=== PATIENT | male | born 1975 | race Caucasian/White ===

== ENCOUNTER 2023-12-12 11:19 | Outpatient (OUT) | payer OTHER, SELFPAY ==
--- NOTE | 2023-12-12 | XR_ITS ---
The [address] [address] Patient Name: RAGHAVENDRA TOTH MRN: [id number] date: 1975 Sex: M Assigned Patient Location: Current Patient Location: Accession/Order Number: [id number] Exam Date: 12/12/2023 12:25 Report Date: 12/22/2023 07:56 At the request of: MOUNA WINN Procedure: XR cervical spine w flex/ext EXAMINATION: XR cervical spine w flex/ext HISTORY: CERVICAL SPINE PAIN COMPARISON: No relevant comparison available. FINDINGS: BONES: Straightening of normal cervical lordosis. No acute fracture or spondylolisthesis. Mild spondylosis and facet osteoarthropathy DISC SPACES: Normal. No significant disc height narrowing, subluxation, or endplate abnormality. PARASPINOUS: Negative. No paraspinous abnormality is seen. OTHER: No transient spondylolisthesis with flexion or extension XR/XR cervical spine w flex/ext IMPRESSION: Mild degenerative changes with no dynamic instability Electronically authenticated by: ADAMS HALL Date: 12/22/2023 07:56
== END 2023-12-12 11:20 | disposition home or self-care (01) ==
LOC: EC 11:19
PROVIDERS: Visit Provider Orthopaedic Surgery Orthopaedic Surgery of the Spine
DX: M54.2 Cervicalgia (principal)
CPT/HCPCS: 72052

== ENCOUNTER 2023-12-30 15:20 | Outpatient (OUT) | payer OTHER, SELFPAY ==
--- NOTE | 2023-12-30 15:28 | XR_ITS ---
The [address] [address] Patient Name: RAGHAVENDRA TOTH MRN: [id number] date: 1975 Sex: M Assigned Patient Location: RAD Current Patient Location: RAD Accession/Order Number: [id number] Exam Date: 12/30/2023 15:30 Report Date: 12/30/2023 15:41 At the request of: MOUNA WINN Procedure: XR foreign body eye BALA EXAMINATION: XR foreign body eye BALA HISTORY: Foreign Body Eye COMPARISON: No relevant comparison available. FINDINGS: ORBITS: Negative for a metallic foreign body. OTHER: Dense oval 1.1 cm structure projecting over left frontal sinus. XR/XR foreign body eye BALA IMPRESSION: 1 no metallic foreign body within the orbits. 2. Calcification versus dense inspissated secretions within left frontal sinus. Suspect chronic sinusitis of the maxillary sinuses as well. Electronically authenticated by: RAI MOURA Date: 12/30/2023 15:41
--- NOTE | 2023-12-30 15:29 | MR_ITS ---
[address] [address] Patient Name: RAGHAVENDRA TOTH MRN: [id number] date: 1975 Sex: M Assigned Patient Location: [facility] Current Patient Location: [facility] Accession/Order Number: [id number] Exam Date: 12/30/2023 15:46 Report Date: 01/01/2024 17:47 At the request of: MOUNA WINN Procedure: MR cervical spine wo con EXAMINATION: MR cervical spine wo con HISTORY: Cervical spine stenosis. Pain and pinched nerve in the neck from weight lifting. COMPARISON: Cervical radiograph 12/12/2023. TECHNIQUE: Multiplanar, multisequence MR images of the cervical spine without intravenous contrast. FINDINGS: The cervical spine is straightened. There is no subluxation. Moderate disc space narrowing C6-C7. Mild disc space narrowing in the remaining cervical spine. Minimal Modic type I changes at C4-C5 through C6-C7. Diffuse narrowing of the spinal canal from short pedicles. C2-C3: Moderate right facet arthropathy. No significant central spinal canal stenosis. No foraminal stenosis. C3-C4: Moderate bilateral facet arthropathy and bilateral uncovertebral osteophytes. No spinal canal stenosis. Severe bilateral foraminal stenosis. C4-C5: Broad-based disc-osteophyte complex, mild to moderate facet arthropathy and bilateral uncovertebral osteophyte. There is moderate central spinal canal and moderate to severe bilateral foraminal stenosis. C5-C6: Disc bulge and moderate facet arthropathy. Mild spinal canal stenosis. Moderate left foraminal stenosis. C6-C7: Broad-based disc protrusion, moderate facet arthropathy and bilateral uncovertebral osteophytes. There is severe spinal canal stenosis and severe bilateral foraminal stenosis. C7-T1: Mild facet arthropathy without spinal canal or foraminal stenosis. MR/MR cervical spine wo con IMPRESSION: 1. Mild multilevel degenerative disc disease and moderate multilevel degenerative facet arthropathy in the cervical spine. 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 2. At C6-C7, there is a broad-based disc protrusion which results in severe central spinal canal stenosis. Severe bilateral foraminal stenosis. 3. Additional multiple levels of significant central spinal canal and foraminal stenosis as described. Electronically authenticated by: LARISA LINDO Date: 01/01/2024 17:47
--- OUTSIDE RECORDS SUMMARY | 2023-12-30 15:30 | XMS_ITS | CCD ---
Author Organization [facility] Care Team Providers Care 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 Name Role Phone BEE GARCIA Admitting Unavailable BEE GARCIA Attending Unavailable REQUEST, NONE LISTED Primary Care Unavailable RICARDO GIRARD Consulting Unavailable BEE GARCIA Consulting Unavailable No Pcp, No Pcp Primary Care Provider UnavailKatlyn Figueroa Primary Care [facility] KATLYN BENDER Attending Unavailable KATLYN BENDER Primary Care Unavailable KATLYN BENDER Referring Unavailable KATLYN BENDER Primary Care Unavailable Medications Current Medications Medication Drug Class(es) Dates Sig (Normalized) Sig (Original) methylPREDNISolone (2 sources) Corticosteroid Start: 4 methylPREDNISolone (MEDROL, MARCELINA,) 4 mg tablet TAKE 6 TABLETS ON DAY 1 DIRECTED ON PACKAGE AND DECREASE BY 1 TAB EACH DAY FOR A TOTAL OF 6 DAYS 12/12/2023 Active tiZANidine 4 mg oral tablet (2 sources) Central alpha-2 Adrenergic Agonist Start: 4 take 1 tablet by mouth every six hours as needed for muscle spasms tiZANidine (ZANAFLEX) 4 mg tablet Indications: Neck muscle spasm Take 1 tablet (4 mg total) by mouth every 6 (six) hours as needed for muscle spasms. 20 tablet 12/16/2023 Active Problems Active Problems Problem Classification Problem Date Documented Da te Episodic/Chronic Immunizations and screening for infectious disease (2 sources) Needs influenza immunization; Translations: [Encounter for immunization] Onset: 12-16-2023 12-16-2023 Episodic Other connective tissue disease (1 source) Muscle spasm of cervical muscle of neck; Translations: [Other muscle spasm] 12-16-2023 Episodic Other connective tissue disease (1 source) Other muscle spasm; Translations: [Other muscle spasm] Onset: 12-16-2023 Episodic Other eye disorders (4 sources) Ocular pain, right eye; Translations: [OCULAR PAIN RIGHT EYE] Onset: 04-12-2018 Episodic Other screening for suspected conditions (not mental disorders or infectious disease) (2 sources) Patient encounter status; Translations: [Encounter for screening for malignant neoplasm of colon] Onset: 12-16-2023 12-16-2023 Episodic Superficial injury; contusion (1 source) Injury of conjunctiva and corneal abrasion without foreign body, right eye, initial encounter; Translations: [INJ CONJ AND CA W/O FB RT EYE INITIAL] Onset: 04-14-2018 Episodic Unclassified (1 source) new patient Onset: 12-16-2023 Past or Other Problems Problem Classification Problem Date Documented Da te Episodic/Chronic Mood disorders (3 sources) Mood disorders Onset: 10-06-2019 10-06-2019 Other ear and sense organ disorders (3 sources) Impacted cerumen in left ear; Translations: [Impacted cerumen, left ear] Onset: 10-06-2019 10-06-2019 Episodic Unclassified (3 sources) Onset: 10-06-2019 10-06-2019 Results Test Name Value Interpretation Reference Range Facil ity CBC AND AUTO DIFFon 12-16-19 24 ABSOLUTE BASOPHIL 0.0 X10E9/L Normal 0.0-0.2 [facility] Comment on above: Performed By: #### C BCA, CMP, 48262-1, HA1C, 3016-3 #### [facility] ([id number]) [address], [address] [place] [address] ABSOLUTE NEUTROPHIL 4.8 X10E9/L Normal 1.5-6.6 [facility] Comment on above: Performed By: #### C BCA, CMP, 76869-3, HA1C, 3016-3 #### [facility] ([id number]) [address], [address] [place] [address] Basophils/100 WBC (Bld) 0.6 % Normal [facility] Comment on above: Performed By: #### C BCA, CMP, 79384-6, HA1C, 3016-3 #### [facility] ([id number]) [address] [place] [address] Eosinophils (Bld) [#/Vol] 0.1 10*3/uL Normal 0.0-0.4 [facility] Comment on above: Performed By: #### C BCA, CMP, 38323-2, HA1C, 3016-3 #### [facility] ([id number]) [address], [facility] [address] [place] [address] Eosinophils/100 WBC (Bld) 0.7 % Normal [facility] Comment on above: Performed By: #### C BCA, CMP, 83889-6, HA1C, 6-3 #### [facility] ([id number]) [address] [place] [address] Erythrocyte distribution width (RBC) [Ratio] 13.2 % Normal 11.5-15.0 [facility] Comment on above: Performed By: #### C BCA, CMP, 92465-4, HA1C, 3015- #### [facility] ([id number]) [address] [place] [address] Hematocrit (Bld) [Volume fraction] 41.5 % Normal 39-49 [facility] Comment on above: Performed By: #### C BCA, CMP, 81847-4, HA1C, 6-3 #### [facility] ([id number]) [address] [place] [address] Hemoglobin (Bld) [Mass/Vol] 14.4 g/dL Normal 13.0-17.0 [facility] Comment on above: Performed By: #### C BCA, CMP, 21012-5, HA1C, 6-3 #### [facility] ([id number]) [address] [place] [address] Lymphocytes (Bld) [#/Vol] 1.6 10*3/uL Normal 1.0-3.5 [facility] Comment on above: Performed By: #### C BCA, CMP, 64579-6, HA1C, 3015-04 #### [facility] ([id number]) [address] [place] [address] Lymphocytes/100 WBC (Bld) 22.4 % Normal [facility] Comment on above: Performed By: #### C BCA, CMP, 51642-2, HA1C, 3015- #### [facility] ([id number]) [address], [address] [place] [address] MCH (RBC) [Entitic mass] 31.2 pg Normal 27-34 [facility] Comment on above: Performed By: #### C BCA, CMP, 01350-1, HA1C, 3015- #### [facility] ([id number]) [address], [facility] [address] [place] [address] MCHC (RBC) [Mass/Vol] 34.7 g/dL Normal 32-36 [facility] Comment on above: Performed By: #### C BCA, CMP, 69056-2, HA1C, 3015- #### [facility] ([id number]) [address], [address] [place] [address] MCV (RBC) [Entitic vol] 90 fL Normal 80-100 [facility] Comment on above: Performed By: #### C BCA, CMP, 79410-2, HA1C, 3015-04 #### [facility] ([id number]) [address], [address] [place] [address] Monocytes (Bld) [#/Vol] 0.7 10*3/uL Normal 0-0.9 [facility] Comment on above: Performed By: #### C BCA, CMP, 66116-8, HA1C, 3015-3 #### [facility] ([id number]) [address], [address] [place] [address] Monocytes/100 WBC (Bld) 10.2 % Normal [facility] Comment on above: Performed By: #### C BCA, CMP, 78431-2, HA1C, 3016-3 #### [facility] ([id number]) [address], [address] [place] [address] Neutrophils/100 WBC (Bld) 66.1 % Normal [facility] Comment on above: Performed By: #### C BCA, CMP, 93977-1, HA1C, 6-3 #### [facility] ([id number]) [address], [address] [place] [address] Platelet mean volume (Bld) [Entitic vol] 9.4 fL Normal 7-12 [facility] Comment on above: Performed By: #### C BCA, CMP, 60920-8, HA1C, 6-3 #### [facility] ([id number]) [address], [address] [place] [address] Platelets (Bld) [#/Vol] 165 10*3/uL Normal 150-450 [facility] Comment on above: Performed By: #### C BCA, CMP, 23826-0, HA1C, 6-3 #### [facility] ([id number]) [address], [address] [place] [address] RBC COUNT 4.62 X10E12/L Normal 4.10-5.70 [facility] Comment on above: Performed By: #### C BCA, CMP, 05498-8, HA1C, 3015-3 #### [facility] ([id number]) [address], [address] [place] [address] WBC (Bld) [#/Vol] 7.3 10*3/uL Normal 4.0-11.0 [facility] Comment on above: Performed By: #### C BCA, CMP, 76808-2, HA1C, 6-3 #### [facility] ([id number]) [address], [address] [place] [address] CBC auto differentialon Basophils (Bld) [#/Vol] 0 10*3/uL [facility] Basophils/100 WBC (Bld) 0.6 % [facility] Eosinophils (Bld) [#/Vol] 0.1 10*3/uL [facility] Eosinophils/100 WBC (Bld) 0.7 % [facility] Erythrocyte distribution width (RBC) [Ratio] 13.2 % 11.5 - 15.0 % [facility] Hematocrit (Bld) [Volume fraction] 41.5 % 39 - 49 % [facility] Hemoglobin (Bld) [Mass/Vol] 14.4 g/dL 13.0 - 17.0 g/dL [facility] Lymphocytes (Bld) [#/Vol] 1.6 10*3/uL [facility] Lymphocytes/100 WBC (Bld) 22.4 % [facility] MCH (RBC) [Entitic mass] 31.2 pg 27 - 34 pg [facility] MCHC (RBC) [Mass/Vol] 34.7 g/dL 32 - 36 g/dL [facility] MCV (RBC) [Entitic vol] 90 fL 80 - 100 fL [facility] Monocytes (Bld) [#/Vol] 0.7 10*3/uL [facility] Monocytes/100 WBC (Bld) 10.2 % [facility] Neutrophils (Bld) [#/Vol] 4.8 10*3/uL [facility] Neutrophils/100 WBC (Bld) 66.1 % [facility] Platelet mean volume (Bld) [Entitic vol] 9.4 fL 7 - 12 fL [facility] Platelets (Bld) [#/Vol] 165 10*3/uL [facility] RBC (Bld) [#/Vol] 4.62 10*6/uL [facility] WBC corrected for nucl RBC Auto (Bld) [#/Vol] 7.3 [facility] COMPREHENSIVE METABOLIC PANE Florencio 12-16-2023 Albumin [Mass/Vol] 4.6 g/dL Normal 3.2-5.3 [facility] Comment on above: Performed By: #### C BCA, CMP, 82300-9, HA1C, 3016-3 #### [facility] ([id number]) [address], [address] [place] [address] ALP [Catalytic activity/Vol] 49 U/L Normal 39-130 [facility] Comment on above: Performed By: #### C BCA, CMP, 82717-6, HA1C, 3016-3 #### [facility] ([id number]) [address], [address] [place] [address] ALT [Catalytic activity/Vol] 25 U/L Normal 0-40 [facility] Comment on above: Performed By: #### C BCA, CMP, 83482-3, HA1C, 3016-3 #### [facility] ([id number]) [address], [address] [place] [address] Anion gap [Moles/Vol] 9 mmol/L Normal 5-15 [facility] Comment on above: Performed By: #### C BCA, CMP, 38808-1, HA1C, 3016-3 #### [facility] ([id number]) [address], [address] [place] [address] AST [Catalytic activity/Vol] 23 U/L Normal 0-41 [facility] Comment on above: Performed By: #### C BCA, CMP, 12139-3, HA1C, 6-3 #### [facility] ([id number]) [address], [address] [place] [address] Bilirubin [Mass/Vol] 0.8 mg/dL Normal 0.3-1.2 [facility] Comment on above: Performed By: #### C BCA, CMP, 18634-0, HA1C, 3016-3 #### [facility] ([id number]) [address], [address] [place] [address] Calcium [Mass/Vol] 9.7 mg/dL Normal 8.5-10.5 [facility] Comment on above: Performed By: #### C BCA, CMP, 41595-9, HA1C, 3016-3 #### [facility] ([id number]) [address], [address] [place] [address] Chloride [Moles/Vol] 102 mmol/L Normal 98-109 [facility] Comment on above: Performed By: #### C BCA, CMP, 49028-7, HA1C, 6-3 #### [facility] ([id number]) [address], [facility] [address] [place] [address] CO2 [Moles/Vol] 26 mmol/L Normal 22-32 [facility] Comment on above: Performed By: #### C BCA, CMP, 76052-1, HA1C, 6-3 #### [facility] ([id number]) [address], [address] [place] [address] Creatinine [Mass/Vol] 0.86 mg/dL Normal 0.60-1.30 [facility] Comment on above: Result Comment: METH OD TRACEABLE TO IDMS STANDARD Performed By: #### C BCA, CMP, 03151-4, HA1C, 3015-3 #### [facility] ([id number]) [address], [address] [place] [address] eGFR (CKD-EPI) NON-RACE DEPENDENT >90 Normal >59 [facility] Comment on above: Result Comment: Reported eGFR is based on the CKD-EPI 2020 equation that does not use a race coefficient. Performed By: #### C BCA, CMP, 53257-4, HA1C, 3016-3 #### [facility] ([id number]) [address], [address] [place] [address] Glucose [Mass/Vol] 88 mg/dL Normal 65-99 [facility] Comment on above: Performed By: #### C BCA, CMP, 91681-4, HA1C, 3016-3 #### [facility] ([id number]) [address], [address] [place] [address] Potassium [Moles/Vol] 3.8 mmol/L Normal 3.5-5.0 [facility] Comment on above: Performed By: #### C BCA, CMP, 66670-9, HA1C, 3016-3 #### [facility] ([id number]) [address] [place] [address] Protein [Mass/Vol] 7.7 g/dL Normal 6.0-8.0 [facility] Comment on above: Performed By: #### C BCA, CMP, 84312-8, HA1C, 3016-3 #### [facility] ([id number]) [address], [address] [place] [address] Sodium [Moles/Vol] 137 mmol/L Normal 134-146 [facility] Comment on above: Performed By: #### C BCA, CMP, 32929-9, HA1C, 3016-3 #### [facility] ([id number]) [address], [address] [place] [address] Urea nitrogen [Mass/Vol] 22 mg/dL Normal 5-23 [facility] Comment on above: Performed By: #### C BCA, CMP, 34156-1, HA1C, 3016-3 #### [facility] ([id number]) [address] [place] [address] Comprehensive metabolic pane florencio 12-16-2023 Albumin [Mass/Vol] 4.6 g/dL 3.2 - 5.3 g/dL [facility] ALP [Catalytic activity/Vol] 49 U/L 39 - 130 U/L [facility] ALT No additional P-5'-P [Catalytic activity/Vol] 25 U/L 0 - 40 U/L [facility] Anion gap [Moles/Vol] 9 mmol/L 5 - 15 mmol/L [facility] AST [Catalytic activity/Vol] 23 U/L 0 - 41 U/L [facility] Bilirubin [Mass/Vol] 0.8 mg/dL 0.3 - 1.2 mg/dL [facility] Calcium [Mass/Vol] 9.7 mg/dL 8.5 - 10.5 mg/dL [facility] Chloride [Moles/Vol] 102 mmol/L 98 - 109 mmol/L [facility] CO2 [Moles/Vol] 26 mmol/L 22 - 32 mmol/L [facility] Creatinine [Mass/Vol] 0.86 mg/dL 0.60 - 1.30 mg/dL [facility] Comment on above: METHOD TRACEABLE TO IDAR STANDARD eGFR (CKD-EPI)non-race dependent - PINF [facility] Comment on above: Reported eGFR is based on the CKD-EPI 2020 equation that does not use a race coefficient. Glucose [Mass/Vol] 88 mg/dL 65 - 99 mg/dL [facility] Potassium [Moles/Vol] 3.8 mmol/L 3.5 - 5.0 mmol /L [facility] Protein [Mass/Vol] 7.7 g/dL 6.0 - 8.0 g/dL [facility] Sodium [Moles/Vol] 137 mmol/L 134 - 146 mmol/L [facility] Urea nitrogen [Mass/Vol] 22 mg/dL 5 - 23 mg/dL [facility] HGB A1C (GLYCO-HGB)on 2023 Glucose [Mass/Vol] 105 mg/dL Normal [facility] Comment on above: Performed By: #### C BCA, CMP, 14004-0, HA1C, 3016-3 #### [facility] ([id number]) [address] [place] [address] HbA1c (Bld) [Mass fraction] 5.3 % Normal 4.4-5.6 [facility] Comment on above: Result Comment: NOTE ADA Guidelines Result HgbA1c Normal : less than 5.7 % Prediabetes : 5.7 % to 6.4 % Diabetes : > 6.4 % Use with caution in patients with abnormal hemoglobin variants as the half-life of red blood cells and in vivo glycation rates are affected. Performed By: #### C BCA, [facility], 29869-7, HA1C, 3016-3 #### [facility] ([id number]) [address] [place] [address] Hemoglobin A1con 12-16-2023 Average glucose Estimated from glycated hemoglobin (Bld) [Mass/Vol] 105 mg/dL [facility] HbA1c (Bld) [Mass fraction] 5.3 % 4.4 - 5.6 % [facility] Comment on above: NOTE ADA Guidelines Result HgbA1c Normal : less than 5.7 % Prediabetes : 5.7 % to 6.4 % Diabetes : > 6.4 % Use with caution in patients with abnormal hemoglobin variants as the half-life of red blood cells and in vivo glycation rates are affected. [employer] Lipid 1996 panelon Cholesterol [Mass/Vol] 196 mg/dL 150 - 200 mg/dL [facility] Cholesterol in HDL [Mass/Vol] 69 mg/dL 39 - PINF mg/dL [facility] Comment on above: HDL <40 mg/dL - High Risk HDL > or = 40mg/dL- Desirable HDL >60 mg/dL - Negative Risk Cholesterol in LDL [Mass/Vol] 104 mg/dL NINF - 130 mg/dL [facility] Comment on above: LDL <100 mg/dL - Desirable LDL >160 mg/dL - High Risk Cholesterol in VLDL [Mass/Vol] 23 mg/dL 0 - 30 mg/dL [facility] Cholesterol.total/Cho lesterol in HDL [Mass ratio] 2.8 {ratio} 1.0 - 5.0 [facility] Triglyceride [Mass/Vol] 116 mg/dL 27 - 150 mg/dL [facility] Cholesterol [Mass/Vol] 196 mg/dL Normal 150-200 [facility] Comment on above: Performed By: #### Vandana ARCHIBALD, MARLYN, 46570-7, HAMichael, 3016-3 #### [facility] ([id number]) [address] [place] [address] Cholesterol in HDL [Mass/Vol] 69 mg/dL Normal >39 [facility] Comment on above: Result Comment: HDL <40 mg/dL - High Risk HDL > or = 40mg/dL- Desirable HDL >60 mg/dL - Negative Risk Performed By: #### Vandana ARCHIBALD, MARLYN, 27380-6, HA, 3016-3 #### [facility] ([id number]) [address] [place] [address] Cholesterol in LDL [Mass/Vol] 104 mg/dL Normal <130 [facility] Comment on above: Result Comment: LDL <100 mg/dL - Desirable LDL >160 mg/dL - High Risk Performed By: #### Vandana ARCHIBALD, MARLYN, 47883-3, HAMichael, 3016-3 #### [facility] ([id number]) [address] [place] [address] Cholesterol in VLDL [Mass/Vol] 23 mg/dL Normal 0-30 [facility] Comment on above: Performed By: #### C BCA, CMP, 32477-6, HA1C, 3016-3 #### [facility] ([id number]) [address] [place] [address] CHOLESTEROL:HDL 2.8 Normal 1.0-5.0 [facility] Comment on above: Performed By: #### C BCA, CMP, 36421-5, HA1C, 3016-3 #### [facility] ([id number]) [address] [place] [address] Triglyceride [Mass/Vol] 116 mg/dL Normal 27-150 [facility] Comment on above: Performed By: #### C BCA, CMP, 17529-7, HA1C, 3016-3 #### [facility] ([id number]) [address] [place] [address] No Panel Informationon 12-15 [facility] TSH Qnon 12-16-2023 TSH 1.94 uIU/mL Normal 0.49-4.67 [facility] Comment on above: Performed By: #### C BCA, CMP, 06101-7, HA1C, 3016-3 #### [facility] ([id number]) [address], [address] [place] [address] Vital Signs Date Time Vital Sign Value Performing Clinician Faci mauriy 12-16-2023 13:52-0500 Body height 186.7 cm Katlyn CERVANTES Work Phone: [facility] 12-16-2023 13:52-0500 Body mass index (BMI) [Ratio] 24.55 kg/m2 Katlyn CERVANTES Work Phone: [facility] 12-16-2023 13:52-0500 Body temperature 97.5 [degF] Katlyn CERVANTES Work Phone: [facility] 12-16-2023 13:52-0500 Body weight 85.55 kg Katlyn SCOTTDERRICKMAN HELPER Work Phone: [facility] 12-16-2023 13:52-0500 Diastolic blood pressure 82 mm[Hg] Katlyn Bender APRN-DERRICKMAN HELPER Work Phone: [facility] 12-16-2023 13:52-0500 Heart rate 53 /min Katlyn Bender APRN-DERRICKMAN HELPER Work Phone: [facility] 12-16-2023 13:52-0500 Respiratory rate 18 /min Katlyn Bender APRN-DERRICKMAN HELPER Work Phone: [facility] 12-16-2023 13:52-0500 SaO2% (BldA) [Mass fraction] 99 % Katlyn Bender APRN-DERRICKMAN HELPER Work Phone: [facility] 12-16-2023 13:52-0500 Systolic blood pressure 120 mm[Hg] [facility]ose [facility] Work Phone: [facility] Encounters Encounter Date Encounter Type Care Provider Facility Start: 12-18-2023 End: 12-18-2023 Telephone encounter Luz Demarco CMA [facility] Internal Medicine - Family Medicine Start: 12-16-2023 End: 12-16-2023 ambulatory [facility] Start: 12-16-2023 Encounter for genera l adult medical examination without abnormal findings [facility] Start: 12-16-2023 End: 12-16-2023 Initial preventive medicine new patient 40-64yrs Katlynjose Bender APRN-DERRICKMAN HELPER Work Phone: [facility] Internal Medicine - Family Medicine Comment on above: Annual physical exam (Primary Dx); Neck muscle spasm; Special screening for malignant neoplasm of colon; Blood tests for routine general physical examination; Need for influenza vaccination Start: 12-16-2023 End: 12-16-2023 Patient encounter procedure Katlynjose Bender APRN-DERRICKMAN HELPER Work Phone: [facility] Start: 12-16-2023 End: 12-16-2023 Physical examination Katlynjose Clineillo INSURANCE CLAIMS EXAMINER-DERRICKMAN HELPER Work Phone: [facility] Start: 12-16-2023 End: 12-16-2023 ambulatory [facility] Kimberly [facility] Start: 12-16-2023 Encounter for genera l adult medical examination without abnormal findings [facility] Start: 11-17-2023 End: 11-19-2023 Telephone encounter Katlyn Clineillo INSURANCE CLAIMS EXAMINER-DERRICKMAN HELPER Work Phone: [facility] Internal Medicine - Family Medicine Start: 04-12-2018 End: 04-12-2018 Patient encounter procedure BEE GARCIA Facility:H1 Plan of Treatment Date Care Activity Detail Author Start: 12-16-2024 End: 12-16-2024 Patient encounter procedure 12/16/2024 3:20 PM EST Office Visit [facility] Internal Medicine - Family Medicine [address] [place] [address] Katlyn Bender, INSURANCE CLAIMS EXAMINER-DERRICKMAN HELPER [address] [place] [address] [facility] Internal Medicine - Family Medicine Start: 12-15-2024 Adult BMI Screening Adult BMI Screen ing [facility] Start: 12-15-2024 Tobacco Screening Tobacco Screening [facility] Start: 12-16-2023 End: 12-16-2023 Patient encounter procedure 12/16/2023 2:00 PM EST Office Visit [facility] Internal Medicine - Family Medicine [address] [place] [address] Katlyn Bender INSURANCE CLAIMS EXAMINER-DERRICKMAN HELPER [address] [place] [address] [facility] Internal Medicine - Family Medicine Start: 10-12-2023 COVID-19 Vaccine ( season) COVID-19 Vaccine ( season) [facility] Start: 10-12-2023 Influenza vaccination Influenza Vacc ine [facility] Start: 08-27-2023 DTaP,Tdap and Td Vaccines (2 - Td or Tdap) DTaP,Tdap and Td Vaccines (2 - Td or Tdap) [facility] Start: 2021 Screening for malign ant neoplasm of colon Colon Cancer Screening 3 Year Cologuard [facility] Start: 08-17-1995 DTaP,Tdap and Td Vaccines (1 - Tdap) DTaP,Tdap and Td Vaccines (1 - Tdap) [facility] Start: 1994 Adult BMI Screening Adult BMI Screen ing [facility] Start: 1988 Depression Screening Depression Scre ening [facility] Start: 1988 Tobacco Screening Tobacco Screening [facility]ard [facility] Colog[facility] Lab Routine Special screening for malignant neoplasm of colon Ordered: 12/16/2023 [facility] Work Phone: Comment on above: Ordered: 12/16/2023 End: 12-15-2024 Thyrotropin [Units/volume] in Serum or Plasma TSH Lab Routine Blood tests for routine general physical examination 1 Occurrences starting 12/16/2023 until 12/15/2024 [facility] Comment on above: 1 Occurrences starti ng 12/16/2023 until 12/15/2024 Thyrotropin [Units/volume] in Serum or Plasma TSH Lab Routine Blood tests for routine general physical examination 12/16/2023 5:54 PM EST [facility] Immunizations Immunization Date Immunization Notes Care Provider Fa cility 12-16-2023 influenza, seasonal, injectable, preservative free Katlyn Bender APRN-[employer]ERR[employer] HELPER Work Phone: [facility] 12-16-2023 Immunization, In Clinic,; Translations: [Drug or medicament (substance)] Katlyn SCOTTDERRICKMAN HELPER Work Phone: [facility] Payers Date Payer Category Payer Managed Care Other (unspecified) [employer] [id number] 2022 Unknown [id number] 1976 Unknown [id number] 1976 Unknown [id number] 1976 Unknown [id number] 1959 Unknown [id number] Social History Date Type Detail Facility Start: 10-06-2019 Tobacco smoking stat [facility] Never smoked tobacco [facility] Start: 10-06-2019 Tobacco use and exposure Smoke less tobacco non-user [facility] Start: 10-06-2019 End: 12-16-2023 Alcoholic beverage intake Lifetime non-drinker (finding) [facility] Start: 10-06-2019 End: 02-25-2020 History of Social function [facility] Start: 10-06-2019 End: 02-25-2020 Alcohol Use Disorder Identification Test - Consumption [AUDIT-C] [facility] How often to you hav e a drink containing alcohol? Never [facility] Average Number of Drinks Not on file [facility] Start: 1975 Sex assigned at Not on file [facility] Start: 09-15-2014 Sex Male (finding) [facility] Clinical Notes 11-17-2023 to 12-18-2023 Telephone Encounter - Luz Demarco CMA - 12/18/2023 11:21 AM ESTTelephone Encounter - Luzhenrique Demarco CMA - 12/18/2023 11:21 AM ESTBILLY Quiñonez - 12/16/2023 2:00 PM EST Note Date & Type Note Facility 12-18-2023 Miscellaneous Notes Formattin g of this note might be different from the original. ----- Message from BILLY Arana sent at 12/18/2023 9:09 AM EST ----- Reviewed. Labs are excellent. Read note to pt. Pt verbalizes understanding. documented in this encounter [facility] 12-18-2023 Telephone encount er Note ----- Message from BILLY Arana sent at 12/18/2023 9:09 AM EST ----- Reviewed. Labs are excellent. [facility] 12-18-2023 Telephone encount er Note Read note to pt. Pt verbalizes understanding. [facility] 12-16-2023 History of Presen t illness Narrative Images from the original note were not included. [address] [place] [id number] SUBJECTIVE: Patient ID: Denis Beth is a 48 y.o. male. Chief Complaint Patient presents with new patient Patient presents for new patient establishment. He would like to complete his annual physical today. Request wellness labs to be drawn as well. Has been greater than 3 years since he has seen a PCP. Has been experiencing neck pain with right arm radicular symptoms. He is currently going to orthopedic for this. Is taking Medrol dose pack with limited results. He also went to a chiropractor. The following portions of the patient's history were reviewed and updated as appropriate: allergies, current medications, past family history, past medical history, past social history, past surgical history and problem list. Past Surgical History: Procedure Laterality Date ADENOIDECTOMY ROTATOR CUFF REPAIR Right TONSILLECTOMY Past Medical History: Diagnosis Date Arthritis Visual impairment Immunization History Administered Date(s) Administered COVID-19, mRNA, LNP-S, PF, 30mcg/0.3mL Dose 05/11/2020, 06/01/2020 REVIEW OF SYSTEMS: Review of Systems Constitutional: Negative for chills, fatigue and fever. HENT: Negative for hearing loss and trouble swallowing. Eyes: Negative for pain and visual disturbance. Respiratory: Negative for cough, chest tightness and shortness of breath. Cardiovascular: Negative for chest pain, palpitations and leg swelling. Gastrointestinal: Negative for blood in stool. Endocrine: Negative for polydipsia, polyphagia and polyuria. Genitourinary: Negative for difficulty urinating, dysuria, flank pain, hematuria, scrotal swelling and testicular pain. Musculoskeletal: Positive for neck pain. Skin: Negative. Allergic/Immunologic: Negative. Neurological: Negative for seizures, syncope and headaches. Hematological: Does not bruise/bleed easily. Psychiatric/Behavioral: Negative. PHYSICAL EXAMINATION: Vitals: 12/16/23 1352 BP: 120/82 BP Site: Left Arm BP Postition: Sitting Pulse: 53 Resp: 18 Temp: 36.4 C (97.5 F) TempSrc: Oral SpO2: 99% Weight: 85.5 kg (188 lb 9.6 oz) Height: 186.7 cm (6' 1.5 ) Physical Exam Vitals and nursing note reviewed. Constitutional: General: He is not in acute distress. Appearance: He is well-developed. HENT: Head: Normocephalic and atraumatic. Right Ear: Tympanic membrane and external ear normal. Left Ear: Tympanic membrane and external ear normal. Nose: Nose normal. Mouth/Throat: Mouth: Mucous membranes are moist. Pharynx: No oropharyngeal exudate. Eyes: General: No scleral icterus. Right eye: No discharge. Left eye: No discharge. Conjunctiva/sclera: Conjunctivae normal. Pupils: Pupils are equal, round, and reactive to light. Neck: Vascular: No JVD. Cardiovascular: Rate and Rhythm: Normal rate and regular rhythm. Heart sounds: Normal heart sounds. No murmur heard. No friction rub. No gallop. Pulmonary: Effort: Pulmonary effort is normal. No respiratory distress. Breath sounds: Normal breath sounds. Chest: Chest wall: No tenderness. Abdominal: General: Bowel sounds are normal. There is no distension. Palpations: Abdomen is soft. There is no mass. Tenderness: There is no abdominal tenderness. There is no guarding or rebound. Hernia: No hernia is present. Musculoskeletal: General: No tenderness. Normal range of motion. Cervical back: Normal range of motion and neck supple. Lymphadenopathy: Cervical: No cervical adenopathy. Skin: General: Skin is warm and dry. Capillary Refill: Capillary refill takes less than 2 seconds. Findings: No rash. Neurological: Mental Status: He is alert and oriented to person, place, and time. Deep Tendon Reflexes: Reflexes are normal and symmetric. Psychiatric: Mood and Affect: Mood normal. Behavior: Behavior normal. Thought Content: Thought content normal. Judgment: Judgment normal. ASSESSMENT/PLAN: Denis was seen today for new patient. Diagnoses and all orders for this visit: Annual physical exam Neck muscle spasm - tiZANidine (ZANAFLEX) 4 mg tablet; Take 1 tablet (4 mg total) by mouth every 6 (six) hours as needed for muscle spasms. Special screening for malignant neoplasm of colon - [facility]olog[facility]ard [facility] Blood tests for routine general physical examination - Comprehensive metabolic panel; Future - CBC auto differential; Future - Lipid profile; Future - Hemoglobin A1c; Future - TSH; Future Need for influenza vaccination - FLU VACCINE TS 2023-(6MOS UP)(PF) 45 MCG(15MCG X3)/0.5 ML IM S[facility] Wellness labs drawn in office today Colonoscopy screening discussed today. Risk and benefits of procedure explained. Patient declines colonoscopy at this time but is agreeable to do Cologuard. New orders for tizanidine 4 mg oral every 6 hours PRN muscle spasms. He is currently being monitored for neck pain. Is on Medrol dose pack at this time. Influenza vaccine administered in office today. ALL QUESTIONS ANSWERED Total time spent was 35 minutes: Preparing to see the patient (e.g., review of tests) Obtaining and/or reviewing separately obtained history Performing a medically appropriate examination and/or evaluation Counseling and educating the patient/family/caregiver Ordering medications, tests, or procedures Follow-up: Annual physical BILLY Quiñonez 12/16/23 1444 documented in this encounter [facility] 11-17-2023 Miscellaneous Notes Formattin g of this note might be different from the original. Patient used to be yours and wants to come back, will you accept That is fine Scheduled documented in this encounter [facility] 11-17-2023 Telephone encount er Note Patient used to be yours and wants to come back, will you accept [facility] 11-17-2023 Telephone encount er Note That is fine [facility] 11-17-2023 Telephone encount er Note Scheduled [facility] Evaluation note Diagnosis Annual physical exam- Primary Routine general medical examination at a health care facility Neck muscle spasm Special screening for malignant neoplasm of colon Special screening for malignant neoplasms, colon Blood tests for routine general physical examination Laboratory examination ordered as part of a routine general medical examination Need for influenza vaccination Need for prophylactic vaccination and inoculation against influenza documented [facility]ructionsNot on filedocumented in this encounter [facility] Attachments The following attachments cannot be sent through Care Everywhere. * Yearly Physical for Adults (Tanzanian) [facility] System[facility]ructionsNot on file [facility] Summary Purpose Family History No Family History Records FoundNo Family History Records FoundNo Family History Records Found Advance Directives No Advanced Directives Records FoundNo Advanced Directives Records FoundNo Advanced Directives Records Found Additional Source Comments (unrecognized sect ion and content) No Status Records FoundNo Status Records FoundNo Status Records Found INFORMATION SOURCE (unrecogn ized section and content) DATE CREATED AUTHOR 04/15/2018 [facility] DATE CREATED AUTHOR AUTHOR'S ORGANIZ ATION 12/18/2023 [facility] DATE CREATED AUTHOR AUTHOR'S ORGANIZ ATION 12/18/2023 [facility] Care Teams (unrecognized sec tion and content) 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 Relationship Specialty Start Date End Date No Pcp, [place] [address] PCP - General Family Medicine 08/23/19 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 This clinical summary was aggregated from multiple sources. Caution should be exercised in using it in the provision of clinical care. This summary normalizes information from multiple sources, and as a consequence, information in this document may materially change the coding, format and clinical context of patient data. In addition, data may be omitted in some cases. CLINICAL DECISIONS SHOULD BE BASED ON THE PRIMARY CLINICAL RECORDS. [facility] [employer] provides no warranty or guarantee of the accuracy or completeness of information in this document.
== END 2023-12-30 15:21 | disposition home or self-care (01) ==
PROVIDERS: PCP Nurse Practitioner; Visit Provider Orthopaedic Surgery Orthopaedic Surgery of the Spine
DX: M48.02 Spinal stenosis, cervical region (principal); M50.30 Other cervical disc degeneration, unspecified cervical region; M50.223 Other cervical disc displacement at C6-C7 level
CPT/HCPCS: 70030; 72141

== ENCOUNTER 2024-02-27 15:19 | Outpatient (RCR) | payer OTHER, SELFPAY | END 2024-03-27 07:37 | disposition home or self-care (01) | LOC: PT 15:19 | PROVIDERS: PCP Nurse Practitioner; Visit Provider Physician Assistant | DX: M48.02 Spinal stenosis, cervical region (principal) | CPT/HCPCS: 97012; 97110; 97112; 97140; 97163 ==

== ENCOUNTER 2024-04-16 13:24 | Outpatient (OUT) | payer OTHER, SELFPAY ==
--- OUTSIDE RECORDS SUMMARY | 2024-04-16 13:27 | XMS_ITS | CCD ---
Author Organization [facility] Care Team Providers Care [employer] Reader Name Role Phone BEE GARCIA Admitting Unavailable BEE GARCIA Attending Unavailable REQUEST, NONE LISTED Primary Care Unavailable RICARDO GIRARD Consulting Unavailable BEE GARCIA Consulting Unavailable KATLYN CORTEZ Attending Unavailable KATLYN CORTEZ Primary Care Unavailable KATLYN CORTEZ Referring Unavailable KATLYN CORTEZ Primary Care Unavailable Nader Retana Primary Care Provider No Pcp, No Pcp Primary Care Provider UnavailKatlyn Figueroa Primary Care Provid er Medications Current Medications Medication Drug Class(es) Dates [...] Classification Problem Date Documented Da te Episodic/Chronic Administrative/social admission (1 source) Patient encounter status; Translations: [Counseling, unspecified] 03-18-2024 Episodic Immunizations and screening for infectious disease (2 sources) Encounter for immunization; Translations: [Needs influenza immunization] Onset: 12-16-2023 12-16-2023 Episodic Other connective tissue disease (1 source) Other muscle spasm; Translations: [Other muscle spasm] Onset: 12-16-2023 Episodic Other eye disorders (4 sources) Ocular pain, right eye; Translations: [OCULAR PAIN RIGHT EYE] Onset: 04-12-2018 Episodic Other screening for suspected conditions (not mental disorders or infectious disease) (2 sources) Encounter for screening for malignant neoplasm of colon; Translations: [Patient encounter status] Onset: 12-16-2023 12-16-2023 Episodic Spondylosis; intervertebral disc disorders; other back problems (3 sources) Neck pain; Translations: [Cervicalgia] 02-19-2024 Episodic Superficial injury; contusion (1 source) Injury of conjunctiva and corneal abrasion without foreign body, right eye, initial encounter; Translations: [INJ CONJ AND CA W/O FB RT EYE INITIAL] Onset: 04-14-2018 Episodic Unclassified (1 source) new patient Onset: 12-16-2023 Past or Other Problems Problem Classification Problem Date Documented Da te Episodic/Chronic Mood disorders (3 sources) Mood disorders Onset: 10-06-2019 10-06-2019 Other connective tissue disease (1 source) Muscle spasm of cervical muscle of neck; Translations: [Other muscle spasm] 12-16-2023 Episodic Other ear and sense organ disorders (3 sources) Impacted cerumen in left ear; Translations: [Impacted cerumen, left ear] Onset: 10-06-2019 10-06-2019 Episodic Unclassified (3 sources) Onset: 10-06-2019 10-06-2019 Results Test Name Value Interpretation Reference Range Facil ity CBC AND AUTO DIFFon 12-16-19 ABSOLUTE BASOPHIL 0.0 X10E9/L Normal 0.0-0.2 [facility] Comment on above: Performed By: #### C BCA, CMP, 05984-7, HA1C, 3016-3 #### [facility] ([id number]) [address] [place] [address] ABSOLUTE NEUTROPHIL 4.8 X10E9/L Normal 1.5-6.6 [facility] Comment on above: Performed By: #### C BCA, CMP, 22983-8, HA1C, 3016-3 #### [facility] ([id number]) [address], [address] [place] [address] Basophils/100 WBC (Bld) 0.6 % Normal [facility] Comment on above: Performed By: #### C BCA, CMP, 49402-7, HA1C, 3015-3 #### [facility] ([id number]) [address], [address] [place] [address] Eosinophils (Bld) [#/Vol] 0.1 10*3/uL Normal 0.0-0.4 [facility] Comment on above: Performed By: #### C BCA, CMP, 62830-8, HA1C, 6-3 #### [facility] ([id number]) [address], [address] [place] [address] Eosinophils/100 WBC (Bld) 0.7 % Normal [facility] Comment on above: Performed By: #### C BCA, CMP, 82883-5, HA1C, 3015-3 #### [facility] ([id number]) [address] [place] [address] Erythrocyte distribution width (RBC) [Ratio] 13.2 % Normal 11.5-15.0 [facility] Comment on above: Performed By: #### C BCA, CMP, 92229-0, HA1C, 3015-3 #### [facility] ([id number]) [address], [address] [place] [address] Hematocrit (Bld) [Volume fraction] 41.5 % Normal 39-49 [facility] Comment on above: Performed By: #### C BCA, CMP, 07660-5, HA1C, 3015-3 #### [facility] ([id number]) [address], [address] [place] [address] Hemoglobin (Bld) [Mass/Vol] 14.4 g/dL Normal 13.0-17.0 [facility] Comment on above: Performed By: #### C BCA, CMP, 54003-2, HA1C, 3015-04 #### [facility] ([id number]) [address] [place] [address] Lymphocytes (Bld) [#/Vol] 1.6 10*3/uL Normal 1.0-3.5 [facility] Comment on above: Performed By: #### C BCA, CMP, 42986-1, HA1C, 3015-04 #### [facility] ([id number]) [address], [facility] [address] [place] [address] Lymphocytes/100 WBC (Bld) 22.4 % Normal [facility] Comment on above: Performed By: #### C BCA, CMP, 85578-5, HA1C, 3015-04 #### [facility] ([id number]) [address] [place] [address] MCH (RBC) [Entitic mass] 31.2 pg Normal 27-34 [facility] Comment on above: Performed By: #### C BCA, CMP, 58741-9, HA1C, 3015-04 #### [facility] ([id number]) [address] [place] [address] MCHC (RBC) [Mass/Vol] 34.7 g/dL Normal 32-[address] [facility] Comment on above: Performed By: #### C BCA, CMP, 96798-2, HA1C, 3015-04 #### [facility] ([id number]) [address] [address] [place] [address] MCV (RBC) [Entitic vol] 90 fL Normal 80-100 [facility] Comment on above: Performed By: #### C BCA, CMP, 45832-8, HA1C, 3015-04 #### [facility] ([id number]) [address] [place] [address] Monocytes (Bld) [#/Vol] 0.7 10*3/uL Normal 0-0.9 [facility] Comment on above: Performed By: #### C BCA, CMP, 94324-3, HA1C, 3016-3 #### [facility] ([id number]) [address], [address] [place] [address] Monocytes/100 WBC (Bld) 10.2 % Normal [facility] Comment on above: Performed By: #### C BCA, CMP, 91780-8, HA1C, 6-3 #### [facility] ([id number]) [address], [address] [place] [address] Neutrophils/100 WBC (Bld) 66.1 % Normal [facility] Comment on above: Performed By: #### C BCA, CMP, 49957-6, HA1C, 3015- #### [facility] ([id number]) [address], [address] [place] [address] Platelet mean volume (Bld) [Entitic vol] 9.4 fL Normal 7-12 [facility] Comment on above: Performed By: #### C BCA, CMP, 91084-2, HA1C, 3015-3 #### [facility] ([id number]) [address], [address] [place] [address] Platelets (Bld) [#/Vol] 165 10*3/uL Normal 150-450 [facility] Comment on above: Performed By: #### C BCA, CMP, 12192-0, HA1C, 3015-3 #### [facility] ([id number]) [address], [address] [place] [address] RBC COUNT 4.62 X10E12/L Normal 4.10-5.70 [facility] Comment on above: Performed By: #### C BCA, CMP, 59342-0, HA1C, 6-3 #### [facility] ([id number]) [address], [address] [place] [address] WBC (Bld) [#/Vol] 7.3 10*3/uL Normal 4.0-11.0 [facility] Comment on above: Performed By: #### C BCA, CMP, 44260-3, HA1C, 3016-3 #### [facility] ([id number]) [address], [address] [place] [address] CBC auto differentialon Basophils (Bld) [#/Vol] 0 10*3/uL [facility] Basophils/100 WBC (Bld) 0.6 % [facility] Eosinophils (Bld) [#/Vol] 0.1 10*3/uL [facility] Eosinophils/100 WBC (Bld) 0.7 % [facility] Erythrocyte distribution width (RBC) [Ratio] 13.2 % 11.5 - 15.0 % [facility] Hematocrit (Bld) [Volume fraction] 41.5 % 39 - 49 % [facility] Hemoglobin (Bld) [Mass/Vol] 14.4 g/dL 13.0 - 17.0 g/dL [facility] Lymphocytes (Bld) [#/Vol] 1.6 10*3/uL [facility] Lymphocytes/100 WBC (Bld) 22.4 % [facility] MCH (RBC) [Entitic mass] 31.2 pg 27 - 34 pg [facility] MCHC (RBC) [Mass/Vol] 34.7 g/dL 32 - 36 g/dL [facility] MCV (RBC) [Entitic vol] 90 fL 80 - 100 fL [facility] Monocytes (Bld) [#/Vol] 0.7 10*3/uL [facility] Monocytes/100 WBC (Bld) 10.2 % [facility] Neutrophils (Bld) [#/Vol] 4.8 10*3/uL [facility] Neutrophils/100 WBC (Bld) 66.1 % [facility] Platelet mean volume (Bld) [Entitic vol] 9.4 fL 7 - [address] [facility] Platelets (Bld) [#/Vol] 165 10*3/uL [facility] RBC (Bld) [#/Vol] 4.62 10*6/uL [facility] WBC corrected for nucl RBC Auto (Bld) [#/Vol] 7.3 [facility] named [facility] COMPREHENSIVE METABOLIC PANE Florencio 12-16-2023 Albumin [Mass/Vol] 4.6 g/dL Normal 3.2-5.3 [facility] Comment on above: Performed By: #### C BCA, CMP, 04225-2, HA1C, 3016-3 #### [facility] ([id number]) [address], [address] [place] [address] ALP [Catalytic activity/Vol] 49 U/L Normal 39-130 [facility] Comment on above: Performed By: #### C BCA, CMP, 35503-7, HA1C, 3016-3 #### [facility] ([id number]) [address], [address] [place] [address] ALT [Catalytic activity/Vol] 25 U/L Normal 0-40 [facility] Comment on above: Performed By: #### C BCA, CMP, 62667-9, HA1C, 3016-3 #### [facility] ([id number]) [address], [address] [place] [address] Anion gap [Moles/Vol] 9 mmol/L Normal 5-[address] [facility] Comment on above: Performed By: #### C BCA, CMP, 81583-1, HA1C, 3016-3 #### [facility] ([id number]) [address], [address] [place] [address] AST [Catalytic activity/Vol] 23 U/L Normal 0-41 [facility] Comment on above: Performed By: #### C BCA, CMP, 33249-0, HA1C, 3016-3 #### [facility] ([id number]) [address], [address] [place] [address] Bilirubin [Mass/Vol] 0.8 mg/dL Normal 0.3-1.2 [facility] Comment on above: Performed By: #### C BCA, CMP, 13145-7, HA1C, 3016-3 #### [facility] ([id number]) [address], [address] [place] [address] Calcium [Mass/Vol] 9.7 mg/dL Normal 8.5-10.5 [facility] Comment on above: Performed By: #### C BCA, CMP, 37042-2, HA1C, 3016-3 #### [facility] ([id number]) [address], [address] [address] Chloride [Moles/Vol] 102 mmol/L Normal 98-109 [facility] Comment on above: Performed By: #### C BCA, CMP, 97969-2, HA1C, 3016-3 #### [facility] ([id number]) [address], [address] [address] CO2 [Moles/Vol] 26 mmol/L Normal 22-32 [facility] Comment on above: Performed By: #### C BCA, CMP, 26238-0, HA1C, 3016-3 #### [facility] ([id number]) [address], [address] [address] Creatinine [Mass/Vol] 0.86 mg/dL Normal 0.60-1.[address] [facility] Comment on above: Result Comment: METH OD TRACEABLE TO IDMS STANDARD Performed By: #### C BCA, CMP, 11946-7, HA1C, 3016-3 #### [facility] ([id number]) [address], [facility] [address] [place] [address] eGFR (CKD-EPI) NON-RACE DEPENDENT >90 Normal >59 [facility] Comment on above: Result Comment: Reported eGFR is based on the CKD-EPI 2020 equation that does not use a race coefficient. Performed By: #### C BCA, CMP, 70413-8, HA1C, 3016-3 #### [facility] ([id number]) [address], [address] [place] [address] Glucose [Mass/Vol] 88 mg/dL Normal 65-99 [facility] Comment on above: Performed By: #### C BCA, CMP, 54794-6, HA1C, 3016-3 #### [facility] ([id number]) [address], [address] [place] [address] Potassium [Moles/Vol] 3.8 mmol/L Normal 3.5-5.[address] [facility] Comment on above: Performed By: #### C BCA, CMP, 31339-9, HA1C, 3016-3 #### [facility] ([id number]) [address], [address] [place] [address] Protein [Mass/Vol] 7.7 g/dL Normal 6.0-8.0 [facility] Comment on above: Performed By: #### C BCA, CMP, 37068-2, HA1C, 3016-3 #### [facility] ([id number]) [address], [address] [place] [address] Sodium [Moles/Vol] 137 mmol/L Normal 134-146 [facility] Comment on above: Performed By: #### C BCA, CMP, 28861-9, HA1C, 6-3 #### [facility] ([id number]) [address], [address] [place] [address] Urea nitrogen [Mass/Vol] 22 mg/dL Normal 5-23 [facility] Comment on above: Performed By: #### C BCA, CMP, 94031-1, HA1C, 3016-3 #### [facility] ([id number]) [address], [address] [place] [address] Comprehensive metabolic pane florencio 12-16-2023 Albumin [Mass/Vol] 4.6 g/dL 3.2 - 5.3 g/dL Pr [facility] ALP [Catalytic activity/Vol] 49 U/L 39 - 130 U/L [facility] ALT No additional P-5'-P [Catalytic activity/Vol] 25 U/L 0 - 40 U/L [facility] Anion gap [Moles/Vol] 9 mmol/L 5 - 15 mmol/L [facility] AST [Catalytic activity/Vol] 23 U/L 0 - 41 U/L [facility] Bilirubin [Mass/Vol] 0.8 mg/dL 0.3 - 1.2 mg/dL [facility] Calcium [Mass/Vol] 9.7 mg/dL 8.5 - 10.5 mg/dL [facility] Chloride [Moles/Vol] 102 mmol/L 98 - 109 mmol/L [facility] CO2 [Moles/Vol] 26 mmol/L 22 - 32 mmol/L [facility] Creatinine [Mass/Vol] 0.86 mg/dL 0.60 - 1.30 mg/dL [facility] Comment on above: METHOD TRACEABLE TO [facility] STANDARD eGFR (CKD-EPI)non-race dependent - PINF [facility] Comment on above: Reported eGFR is based on the CKD-EPI 2020 equation that does not use a race coefficient. Glucose [Mass/Vol] 88 mg/dL 65 - 99 mg/dL [facility] Potassium [Moles/Vol] 3.8 mmol/L 3.5 - 5.0 mmol /L [facility] Protein [Mass/Vol] 7.7 g/dL 6.0 - 8.0 g/dL Pr [facility] Sodium [Moles/Vol] 137 mmol/L 134 - 146 mmol/L [facility] Urea nitrogen [Mass/Vol] 22 mg/dL 5 - 23 mg/dL [facility] HGB A1C (GLYCO-HGB)on 2023 Glucose [Mass/Vol] 105 mg/dL Normal [facility] Comment on above: Performed By: #### C BCA, CMP, 19547-1, HA1C, 3016-3 #### [facility] ([id number]) [address], [address] [place] [address] HbA1c (Bld) [Mass fraction] 5.3 % Normal 4.4-5.6 [facility] Comment on above: Result Comment: NOTE ADA Guidelines Result HgbA1c Normal : less than 5.7 % Prediabetes : 5.7 % to 6.4 % Diabetes : > 6.4 % Use with caution in patients with abnormal hemoglobin variants as the half-life of red blood cells and in vivo glycation rates are affected. Performed By: #### C BCA, [facility], 98196-8, HA1C, 3016-3 #### [facility] ([id number]) [address], [address] [place] [address] Hemoglobin A1con 12-16-2023 Average glucose Estimated from glycated hemoglobin (Bld) [Mass/Vol] 105 mg/dL [facility] HbA1c (Bld) [Mass fraction] 5.3 % 4.4 - 5.6 % [facility] Comment on above: NOTE ADA Guidelines Result HgbA1c Normal : less than 5.7 % Prediabetes : 5.7 % to 6.4 % Diabetes : > 6.4 % Use with caution in patients with abnormal hemoglobin variants as the half-life of red blood cells and in vivo glycation rates are affected. [facility] 4 Cholesterol [Mass/Vol] 196 mg/dL 150 - 200 mg/dL [facility] [email or web address] Cholesterol in HDL [Mass/Vol] 69 mg/dL 39 - PINF mg/dL [facility] [employer] Comment on above: HDL <40 mg/dL - High Risk HDL > or = 40mg/dL- Desirable HDL >60 mg/dL - Negative Risk Cholesterol in LDL [Mass/Vol] 104 mg/dL NINF - 130 mg/dL [facility] Comment on above: LDL <100 mg/dL - Desirable LDL >160 mg/dL - High Risk Cholesterol in VLDL [Mass/Vol] 23 mg/dL 0 - 30 mg/dL [facility] Cholesterol.total/Cho lesterol in HDL [Mass ratio] 2.8 {ratio} 1.0 - 5.0 [facility] Triglyceride [Mass/Vol] 116 mg/dL 27 - 150 mg/dL [facility] Cholesterol [Mass/Vol] 196 mg/dL Normal 150-200 [facility] Comment on above: Performed By: #### Vandana ARCHIBALD, MARLYN, 02085-7, HAMichael, 3016-3 #### [facility] ([id number]) [address] [place] [address] Cholesterol in HDL [Mass/Vol] 69 mg/dL Normal >39 [facility] Comment on above: Result Comment: HDL <40 mg/dL - High Risk HDL > or = 40mg/dL- Desirable HDL >60 mg/dL - Negative Risk Performed By: #### C DRAGAN, MARLYN, 75408-7, HA1C, 3016-3 #### [facility] ([id number]) [address], [address] [place] [address] Cholesterol in LDL [Mass/Vol] 104 mg/dL Normal <130 [facility] Comment on above: Result Comment: LDL <100 mg/dL - Desirable LDL >160 mg/dL - High Risk Performed By: #### C DRAGAN, MARLYN, 85251-3, HA1C, 3016-3 #### [facility] ([id number]) [address], [address] [place] [address] Cholesterol in VLDL [Mass/Vol] 23 mg/dL Normal 0-30 [facility] Comment on above: Performed By: #### C BCA, CMP, 72529-6, HA1C, 3016-3 #### [facility] ([id number]) [address], [address] [place] [address] CHOLESTEROL:HDL 2.8 Normal 1.0-5.0 [facility] Comment on above: Performed By: #### C BCA, CMP, 69734-2, HA1C, 3016-3 #### [facility] ([id number]) [address], [address] [place] [address] Triglyceride [Mass/Vol] 116 mg/dL Normal 27-150 [facility] Comment on above: Performed By: #### C BCA, CMP, 15938-4, HA1C, 3016-3 #### [facility] ([id number]) [address], [address] [place] [address] No Panel Informationon 12-15 [facility] TSH Qnon 12-16-2023 TSH 1.94 uIU/mL Normal 0.49-4.67 [facility] Comment on above: Performed By: #### C BCA, CMP, 17114-7, HA1C, 3016-3 #### [facility] ([id number]) [address], [address] [place] [address] Vital Signs Date Time Vital Sign Value Performing Clinician Zakiya cantu 12-16-2023 13:52-0500 Body height 186.7 cm Katlyn CERVANTES Work Phone: [facility] 12-16-2023 13:52-0500 Body mass index (BMI) [Ratio] 24.55 kg/m2 Katlyn CERVANTES Work Phone: [facility] [employer] [facility] 12-16-2023 13:52-0500 Body temperature 97.5 [degF] Katlyn Cortez [employer]AGGING MACHINE OPERATOR Work Phone: [facility] [employer] [facility] 12-16-2023 13:52-0500 Body weight 85.55 kg Katlyn Cortez H[employer]ER[employer] BAGGING MACHINE OPERATOR Work Phone: [facility] [employer] [facility] 12-16-2023 13:52-0500 Diastolic blood pressure 82 mm[Hg] Katlyn Cortez HANGER[employer] BAGGING MACHINE OPERATOR Work Phone: [facility] [employer] [facility] 12-16-2023 13:52-0500 Heart rate 53 /min Katlyn Cortez HANGER[employer] BAGGING MACHINE OPERATOR Work Phone: [facility] 12-16-2023 13:52-0500 Respiratory rate 18 /min Katlyn Cortez HANGER[employer]FOOD BAGGING MACHINE OPERATOR Work Phone: [facility] 12-16-2023 13:52-0500 SaO2% (BldA) [Mass fraction] 99 % Katlyn Cortez HANGER[employer]FOOD BAGGING MACHINE OPERATOR Work Phone: [facility] [employer] [facility] 12-16-2023 13:52-0500 Systolic blood pressure 120 mm[Hg] Katlyn Cortez HANGER[employer] BAGGING MACHINE OPERATOR Work Phone: [facility] Encounters Encounter Date Encounter Type Care Provider Facility Start: 03-30-2024 End: 03-30-2024 Patient encounter procedure Shola Miguel MD Work Phone: [facility] [place] Comment on above: Cervical radiculopat hy (Primary Dx); Herniation of cervical intervertebral disc with radiculopathy Start: 03-18-2024 End: 03-30-2024 ambulatory Kathleen Mayfield RN [facility] [facility] [employer] Comment on above: Health education (Pr imary Dx) Start: 03-18-2024 End: 03-30-2024 Telemedicine consultation with patient Kathleen Mayfield RN [facility] Start: 02-17-2024 End: 02-19-2024 Chart abstracting Jose Tobar MD Work Phone: Neurology Start: 12-18-2023 End: 12-18-2023 Telephone encounter Luz Demarco CMA [facility] Internal Medicine - Family Medicine Start: 12-16-2023 End: 12-16-2023 ambulatory [facility] Start: 12-16-2023 Encounter for genera l adult medical examination without abnormal findings [facility] Start: 12-16-2023 End: 12-16-2023 Initial preventive medicine new patient 40-64yrs [facility] HANGER[employer]OD BAGGING MACHINE OPERATOR Work Phone: [facility] Internal Medicine - Family Medicine Comment on above: Annual physical exam (Primary Dx); Neck muscle spasm; Special screening for malignant neoplasm of colon; Blood tests for routine general physical examination; Need for influenza vaccination Start: 12-16-2023 End: 12-16-2023 Patient encounter procedure [facility] Work Phone: [facility] Start: 12-16-2023 End: 12-16-2023 [facility] Work [facility] Start: 12-16-2023 End: 12-16-2023 ambulatory [facility] Start: 12-16-2023 Encounter for genera l adult medical examination without abnormal findings [facility] Start: 11-17-2023 End: 11-19-2023 Telephone encounter [facility] Work Phone: [facility] Internal Medicine - Family Medicine Start: 04-12-2018 End: 04-12-2018 Patient encounter procedure BEE GARCIA Facility: Procedures Date Procedure Procedure Detail Performing Clinician Start: 12-16-2023 Lipid 1996 panel - S juancarlos or Plasma Shola Miguel MD Work Phone: Plan of Treatment Date Care Activity Detail Author Start: 12-15-2028 Lipid panel Lipid Screening [facility] Start: 01-29-2028 Screening for malign ant neoplasm of colon [facility] Start: 12-15-2026 Diabetes Screening Diabetes Screenin g [facility] Start: 12-16-2024 End: 12-16-2024 Patient encounter procedure 12/16/2024 3:20 PM EST Office Visit [facility] Internal Medicine - Family Medicine [address] [place] [address] Katlyn Cortez, [employer] BAGGING MACHINE OPERATOR [address] [place] [address] [facility] Internal Medicine Family Medicine Start: 12-15-2024 Adult BMI Screening Adult BMI Screen ing [facility] Start: 12-15-2024 Tobacco Screening Tobacco Screening [facility] Start: 12-16-2023 End: 12-16-2023 Patient encounter procedure 12/16/2023 2:00 PM EST Office Visit [facility] Internal Medicine - Family Medicine [address] [place] [address] Katlyn Cortez, H[employer] BAGGING MACHINE OPERATOR [address] [place] [address] [facility] Internal Medicine [facility] Start: 10-12-2023 Covid-19 Vaccine ( season) Covid-19 Vaccine ( season) [facility] Start: 10-12-2023 COVID-19 Vaccine ( season) COVID-19 Vaccine ( season) [facility] Start: 10-12-2023 Influenza vaccination Influenza Vacc ine [facility] Start: 08-27-2023 DTaP,Tdap and Td Vaccines (2 - Td or Tdap) DTaP,Tdap and Td Vaccines (2 - Td or Tdap) [facility] Start: 2021 Screening for malign ant neoplasm of colon [facility] Start: 08-17-1995 DTaP,Tdap and Td Vaccines (1 - Tdap) DTaP,Tdap and Td Vaccines (1 - Tdap) [facility] Start: 08-17-1995 Hepatitis B Vaccine (1 of 3 - 19+ 3-dose series) Hepatitis B Vaccine (1 of 3 - 19+ 3-dose series) [facility] Start: 08-17-1995 Urine microalbumin profile DTaP,Tdap,Td Vaccine (1 - Tdap) [facility] Start: 1994 Adult BMI Screening Adult BMI Screen ing [facility] Start: 1994 Anxiety Screening Anxiety Screening [facility] Start: 1994 Depression Screening Depression Scre ing [facility] Start: 1994 Hepatitis C screening Hepatitis C Sc reening [facility] Start: 1994 HIV screening HIV Screening [facility] Start: 1988 Depression Screening Depression Scre ing [facility] Start: 1988 Tobacco Screening Tobacco Screening [facility] Lab Routine Special screening for malignant neoplasm of colon Ordered: 12/16/2023 [facility] Work Phone: Comment on above: Ordered: 12/16/2023 End: 12-15-2024 Thyrotropin [Units/volume] in Serum or Plasma TSH Lab Routine Blood tests for routine general physical examination 1 Occurrences starting 12/16/2023 until 12/15/2024 [facility] Comment on above: 1 Occurrences starti ng 12/16/2023 until 12/15/2024 Thyrotropin [Units/volume] in Serum or Plasma TSH Lab Routine Blood tests for routine general physical examination 12/16/2023 5:54 PM EST [facility] End: 03-20-2025 XR CERV OTHER 4V AP/LAT/FLX/EXT XR CERV OTHER 4V AP/LAT/FLX/EXT Radiology Routine Neck pain 1 Occurrences starting 02/19/2024 until 03/20/2025 [facility] Work Phone: Comment on above: 1 Occurrences starti ng 02/19/2024 until 03/20/2025 Immunizations Immunization Date Immunization Notes Care Provider Nelly tee 12-16-2023 influenza, seasonal, injectable, preservative free Katlyn CERVANTES Work Phone: [facility] 12-16-2023 Immunization, In Clinic,; Translations: [Drug or medicament (substance)] Katlyn Diego CERVANTES Work Phone: [facility] Payers Date Payer Category Payer Managed Care Other (unspecified) [employer] [address] [id number] 2022 Private Health Insurance [id number] 2022 Unknown [id number] 1975 Unknown [id number] 1975 Unknown [id number] 1975 Unknown [id number] 1959 Unknown [id number] Social History Date Type Detail Facility [facility] consumption [facility] Start: 1975 Sex assigned at Not on file [facility] [employer] [facility] Start: 10-06-2019 End: 02-25-2020 Gender identity Not on file [facility] Start: 10-06-2019 Tobacco smoking stat [facility] Never smoked tobacco [facility] Start: 10-06-2019 Tobacco use and exposure Smokeless tobacco non-user [facility] Start: 10-06-2019 End: 12-16-2023 Alcoholic beverage intake Lifetime non-drinker (finding) [facility] Start: 10-06-2019 End: 02-25-2020 History of Social function [facility] How often to you hav e a drink containing alcohol? Never [facility] Average Number of Drinks Not on file [facility] Start: 09-15-2014 Sex Male (finding) [facility] Clinical Notes 11-17-2023 to 03-30-2024 Shola Miguel MD - 03/30/2024 4:55 PM Kathleen Esquivel RN - 03/18/2024 2:56 PM Tom Henry APRN.TIRSO - 02/19/2024 12:09 PM Tre Soliz - 02/17/2024 4:48 PM EST Note Date & Type Note Facility 03-30-2024 Note HNO ID: [id number] Author: SHOLA MIGUEL MD Service: ? Author Type: Physician Type: Progress Notes Filed: 03/30/2024 17:09 Note Text: Virtual second opinion Chief complaint: Neck pain and right arm pain. History: Denis Beth is a 48-year-old male with a complaint of posterior neck pain that radiates into his right shoulder and down the posterior aspect of his right arm. He has some numbness in his right index finger. The pain fluctuates but at times can limit his activities. He denies any significant weakness. He denies any left arm pain. Conservative measures today have not given him much relief. He was seen by a spine surgeon who has recommended a C6-7 anterior discectomy with fusion and fixation. Imaging: Cervical MRI 12/30/2023: Ventral epidural disc/osteophyte formation at C6-7 greater than C4-5 causing a moderate degree of canal stenosis. Normal spinal alignment. Cervical x-rays 12/12/2023: Normal spinal alignment. No instability on flexion-extension views. Diagnosis: Cervical disc herniation Cervical radiculopathy. Recommendation: I have reviewed my findings with Mr. Beth. I advised him that if a patient like him was seen by me in my office I would recommend a C6-7 anterior discectomy with fusion and fixation. We discussed the option of cervical disc arthroplasty. I advised him that this was a valid option but that, in my hands, I have had better experience with anterior discectomy with fusion and fixation. I also advised him that the development of adjacent level degeneration occurs following both fusion as well as disc replacement. This rate of development of adjacent level degeneration is relatively low with very few patients requiring additional surgery following either procedure. Shola Miguel MD [facility] 03-30-2024 History of Presen t illness Narrative Virtual second opinion Chief complaint: Neck pain and right arm pain. History: Denis Beth is a 48-year-old male with a complaint of posterior neck pain that radiates into his right shoulder and down the posterior aspect of his right arm. He has some numbness in his right index finger. The pain fluctuates but at times can limit his activities. He denies any significant weakness. He denies any left arm pain. Conservative measures today have not given him much relief. He was seen by a spine surgeon who has recommended a C6-7 anterior discectomy with fusion and fixation. Imaging: Cervical MRI 12/30/2023: Ventral epidural disc/osteophyte formation at C6-7 greater than C4-5 causing a moderate degree of canal stenosis. Normal spinal alignment. Cervical x-rays 12/12/2023: Normal spinal alignment. No instability on flexion-extension views. Diagnosis: Cervical disc herniation Cervical radiculopathy. Recommendation: I have reviewed my findings with Mr. Beth. I advised him that if a patient like him was seen by me in my office I would recommend a C6-7 anterior discectomy with fusion and fixation. We discussed the option of cervical disc arthroplasty. I advised him that this was a valid option but that, in my hands, I have had better experience with anterior discectomy with fusion and fixation. I also advised him that the development of adjacent level degeneration occurs following both fusion as well as disc replacement. This rate of development of adjacent level degeneration is relatively low with very few patients requiring additional surgery following either procedure. Shola Miguel MD documented in this encounter [facility] 03-18-2024 History of Presen t illness Narrative Images from the original note were not included. Virtual Second Opinions by [facility] Specific Physician Requested by patient: N/A PATIENT INFORMATION: Patient Name: Denis Beth [facility]: [id number] : 1975 Chief Complaint: Second Opinion for cervical stenosis treatment Brief Medical History: Denis Beth is a 48 year old male who states around end of September 2023, felt like a muscle pull. His fingers starting going numb and a pinch in his neck. He went to the doctor and was told there was a bulging disc, degenerative disease, stenosis, moderate disc narrowing and other concerns on the MRI report. He is in PT and has been for about 3-4 weeks but it is not helping. The recommendation is ACDF surgery, which is scheduled for 04/02 at [place]. Questions related to second opinion: 1. Is there any other treatment available? 2. Is a disc replacement an option? 3. Would like to know if there are other treatments over a fusion. Records to [facility] [place] [address] Kymberly Espinoza, [place] [address] MR Office notes 12/2023-present Images are already available with reports in scanned doc PATIENT NAME: Denis Beth INTAKE DATE: March 18, 2024 INTAKE TIME: 2:57 PM SENIOR ACCOUNTING CLERK: Kathleen Mayfield RN documented in this encounter [facility] 02-19-2024 Note HNO ID: [id number] Author: TOM PALAFOX APRN.FOOD BAGGING MACHINE OPERATOR Service: ? Author Type: Nurse Practitioner Type: Progress Notes Filed: 02/19/2024 12:14 Note Text: Per Triage: Denis Beth is a 48 year old male that requests evaluation of cerv. Per review, they have symptoms of Neck pain Shoulder pain Arm pain (R) Numbness, Tingling, Is this a 2nd opinion from another spine surgeon? Yes Were you offered surgery? Yes Requesting: Jose Tobar / Juan Aburto Are you interested in a virtual visit if offered? Yes CMT: Pt chiro Studies (Reports unless indicated) Mri c report Several bilateral FS at C3/4 C4/5 mod canal and mod/sev FS C5/6 mod left FS C6/7 sev canal stneosis and sev b/l FS Disposition: Please schedule with Dr Aburto per patient request (sooner availability than jorge a). Instruct patient to bring copy of CD imaging to appointment. Patient offered surgery and has severe findings on imaging. If patient would like sooner appointment can schedule with brian amina; xr cerv ordered to be completed prior [facility] 02-19-2024 History of Presen t illness Narrative Per Triage: Denis Beth is a 48 year old male that requests evaluation of cerv. Per review, they have symptoms of Neck pain Shoulder pain Arm pain (R) Numbness, Tingling, Is this a 2nd opinion from another spine surgeon? Yes Were you offered surgery? Yes Requesting: Jose Tobar / Juan Aburto Are you interested in a virtual visit if offered? Yes CMT: Pt chiro Studies (Reports unless indicated) Mri c report Several bilateral FS at C3/4 C4/5 mod canal and mod/sev FS C5/6 mod left FS C6/7 sev canal stneosis and sev b/l FS Disposition: Please schedule with Dr Aburto per patient request (sooner availability than jorge a). Instruct patient to bring copy of CD imaging to appointment. Patient offered surgery and has severe findings on imaging. If patient would like sooner appointment can schedule with brian baeznta; xr cerv ordered to be completed prior Patient name: Denis Beth Are you being referred by a Center for [facility] Provider or Pain Management Provider at [facility]? No If answer is YES please schedule directly with surgeon, triage does not need to be completed. Is this a self-referral Yes If not, who is the Referring Provider Is this a 2nd opinion from another spine surgeon? Yes Were you offered surgery? Yes MRI/CT/myelogram within 12 months? Yes If NO , please refer to medical spine or PCP to complete above imaging, triage does not need to be completed If YES, please ask for the name/address of the facility where the MRI/CT/myelogram was completed: [facility] Address: [address] [place] [address] MRI/CT/myelogram viewable in Epic: No If not, please provide [phone] to fax in imaging reports for review. Also, please inform patient to hand carry imaging disc to appointment. XR (spine) within 12 months: No If YES, please ask for the name/address of the facility where the XR was completed: Dr. Wellington's patients: Have you had previous EMG/Nerve Conduction Study, Ultrasound, or MRI for these same symptoms? If YES, please ask for the name/address of the facility where they were completed: Requested provider (First and Last name): Jose Tobar / Juan Aburto Are you interested in a virtual visit if offered? Yes 1. Where are you having symptoms related to this visit? Neck pain Shoulder pain Arm pain (R) Numbness, Tingling, Back pain No Leg pain No Arm pain Yes Neck pain Yes 2. Are you having any of the following symptoms: Difficulty walking No Numbness Yes Weakness No Trouble using your hands? No 3. Have you had any injections or physical therapy in the last 12 months? Yes If YES then please ask for the name/address of the facility where the injections and/or physical therapy was completed PT Scheduling soon Have you tried any other kinds of non-surgical treatments in the last 12 months? (For example: NSAIDS, muscle relaxants, analgesics, oral steroids, Chiropractor, Acupuncture): Chiropractor 4. Are you currently taking daily prescribed narcotic medications for your current symptoms (For example Oxycodone, Hydrocodone, Tramadol, Morphine, Other)? No 5. Have you had previous spinal surgery for this same symptoms? No If YES please ask for the name of facility/address of where the surgery was completed: Additional Comments [phone] (Home Phone) documented in this encounter [facility] 02-17-2024 Note HNO ID: [id number] Author: ?, ?, ? Service: ? Author Type: ? Type: Progress Notes Filed: 02/19/2024 12:14 Note Text: Patient name: Denis Beth Are you being referred by a [facility] Provider or Pain Management Provider at [facility]? No If answer is YES please schedule directly with surgeon, triage does not need to be completed. Is this a self-referral Yes If not, who is the Referring Provider Is this a 2nd opinion from another spine surgeon? Yes Were you offered surgery? Yes MRI/CT/myelogram within 12 months? Yes If NO , please refer to medical spine or PCP to complete above imaging, triage does not need to be completed If YES,? please ask for the name/address of the facility where the MRI/CT/myelogram was completed: [facility] Address: [address] [place] [address] MRI/CT/myelogram viewable in Epic: No If not, please provide [phone] to fax in imaging reports for review. Also, please inform patient to hand carry imaging disc to appointment. XR (spine) within 12 months: No If YES,? please ask for the name/address of the facility where the XR was completed: Dr. Wellington's patients: Have you had previous EMG/Nerve Conduction Study, Ultrasound, or MRI for these same symptoms? If YES,? please ask for the name/address of the facility where they were completed: Requested provider (First and Last name): Jose Tobar / Juan Aburto Are you interested in a virtual visit if offered? Yes 1. Where are you having symptoms related to this visit? Neck pain Shoulder pain Arm pain (R) Numbness, Tingling, Back pain No Leg pain No Arm pain Yes Neck pain Yes 2. Are you having any of the following symptoms: Difficulty walking No Numbness Yes Weakness No Trouble using your hands? No 3. Have you had any injections or physical therapy in the last 12 months? Yes If YES then please ask for the name/address of the facility where the injections and/or physical therapy was completed PT Scheduling soon Have you tried any other kinds of non-surgical treatments in the last 12 months? (For example: NSAIDS, muscle relaxants, analgesics, oral steroids, Chiropractor, Acupuncture): Chiropractor 4. Are you currently taking daily prescribed narcotic medications for your current symptoms (For example Oxycodone, Hydrocodone, Tramadol, Morphine, Other)? No 5. Have you had previous spinal surgery for this same symptoms? No If YES? please ask for the name of facility/address of where the surgery was completed: Additional Comments [phone] (Home Phone) [facility] 12-18-2023 Miscellaneous Notes Formattin g of this note might be different from the original. ----- Message from BILLY Arana sent at 12/18/2023 9:09 AM EST ----- Reviewed. Labs are excellent. Read note to pt. Pt verbalizes understanding. documented in this encounter [facility] 12-18-2023 Telephone encount er Note ----- Message from BILLY Arana sent at 12/18/2023 9:09 AM EST ----- Reviewed. Labs are excellent. [facility] 12-18-2023 Telephone encount er Note Read note to pt. Pt verbalizes understanding. [facility] 12-16-2023 History of Presen t illness Narrative Images from the original note were not included. [address] [facility] [phone] SUBJECTIVE: Patient ID: Denis Beth is a [...] medications, tests, or procedures Follow-up: Annual physical Katlyn Cortez, CORTNEY-FOOD BAGGING MACHINE OPERATOR 12/16/23 [id number] documented in this encounter [facility] 11-17-2023 Miscellaneous Notes Formattin g of this note might be different from the original. Patient used to be yours and wants to come back, will you accept That is fine Scheduled documented in this encounter [facility] 11-17-2023 Telephone encount er Note Patient used to be yours and wants to come back, will you accept [facility] 11-17-2023 Telephone encount er Note That is fine [facility] 11-17-2023 Telephone encount er Note Scheduled [facility] Evaluation note Diagnosis Neck pain- Primary Cervicalgia [facility] Diagnosis Annual physical exam- Primary Routine general [...] inoculation against influenza [facility] Diagnosis Cervical radiculopathy- Primary Brachial neuritis or radiculitis nos Herniation of cervical intervertebral disc with radiculopathy Displacement of cervical intervertebral disc without myelopathy [facility]* Diagnosis Health education- Primary Counseling NOS documented [facility] this encounter [facility]Not on filedocumented in this encounterProBu[facility] SystemInstructions* Attachments The following attachments cannot be sent through Care Everywhere. * Yearly Physical for Adults (Filipino) documented in this encounterProOhiohealth Doctors HospitalInstructionsNot on file documented in this encounterProOhiohealth Doctors HospitalReason for referral (narrative)* Diagnostic Procedure Only (Routine) - New Request Specialty Diagnoses / Procedures Referred By Harpreet t Referred To Contact XR IMAGING Diagnoses Neck pain Procedures XR CERV OTHER 4V AP/LAT/FLX/EXT RADEX SPINE CERVICAL 4 OR 5 VIEWS Tom Palafox, CORTNEY.FOOD BAGGING MACHINE OPERATOR [facility] [place] [address] Xr Imaging [facility] Referral ID Status Reason Start Date Expiration Date Visits Requested Visits Authorized [id number] New Request Auto-Generat ed Referral 02/19/2024 03/20/2025 1 1 [facility] Summary Purpose Family History No Family History Records FoundNo Family History Records FoundNo Family History Records FoundNo Family History Records Found Advance Directives No Advanced Directives Records FoundNo Advanced Directives Records FoundNo Advanced Directives Records FoundNo Advanced Directives Records Found Additional Source Comments (unrecognized sect ion and content) No Status Records FoundNo Status Records FoundNo Status Records FoundNo Status Records Found INFORMATION SOURCE (unrecogn ized section and content) DATE CREATED AUTHOR 04/15/2018 [facility] DATE CREATED AUTHOR AUTHOR'S ORGANIZ ATION 12/18/2023 [facility] DATE CREATED AUTHOR AUTHOR'S ORGANIZ ATION 12/18/2023 [facility] DATE CREATED AUTHOR AUTHOR'S ORGANIZ ATION 04/01/2024 [facility] Source Comments (unrecognize d section and content) In the event this informatio n is protected by the Federal Confidentiality of Alcohol and Drug Abuse Patient Records regulations: The Federal rules restrict any use of the information to criminally investigate or prosecute any alcohol or drug abuse patient.[facility] Health[facility] the event this information is protected by the Federal Confidentiality of Alcohol and Drug Abuse Patient Records regulations: The Federal rules restrict any use of the information to criminally investigate or prosecute any alcohol or drug abuse patient.[facility] HealthIn the event this information is protected by the Federal Confidentiality of Alcohol and Drug Abuse Patient Records regulations: The Federal rules restrict any use of the information to criminally investigate or prosecute any alcohol or drug abuse patient.[facility] Care Teams (unrecognized sec tion and content) [employer] Reader Relationship Specialty Start Date End Date Rodriguez [place] [address] [place] [phone] PCP - General Family Medicine 03/11/13 [employer] Relationship Specialty Start Date End Date No [place] [address] PCP - General Family Medicine 08/23/19 [employer] Relationship Specialty Start Date End Date Katlyn Cortez APRN-FOOD BAGGING MACHINE OPERATOR [address] [place] [address] PCP - General Family Medicine 12/16/23 [employer] Relationship Specialty Start Date End Date Aleena Corteze Kimberly, HANGER-FOOD BAGGING MACHINE OPERATOR [address] [place] [address] PCP - General Family Medicine 12/16/23 [employer] Reader Relationship Specialty Start Date End Date Nader Retana [address] [place] [phone] PCP - General Family Medicine 03/11/13 [employer] Reader Relationship Specialty Start Date End Date Nader Retana [address] [place] [address] PCP - General Family Medicine 03/11/13 Reason for Visit (unrecogniz ed section and content) Reason Comments new patient Reason Comments Trigger Point Injection Reason Comments Second Opinion FOR RECORDS PERTAINING TO PATIENTS WHO ARE [...] BE BASED ON THE PRIMARY CLINICAL RECORDS. [employer] provides no warranty or guarantee of the accuracy or completeness of information in this document.
--- NOTE | 2024-04-16 13:30 | XR_ITS ---
[address] [address] Patient Name: RAGHAVENDRA TOTH MRN: [id number] date: 1975 Sex: M Assigned Patient Location: MS Current Patient Location: LAB Accession/Order Number: [id number] Exam Date: 04/16/2024 18:36 Report Date: 04/16/2024 18:38 At the request of: MOUNA WINN MD Procedure: XR chest 2V Plain film chest Single view HISTORY: A precervical testing for cervical spine fusion COMPARISON: None FINDINGS: SUPPORT DEVICES: None POSTSURGICAL CHANGES: None HEART: Within normal limits PULMONARY BOGDAN: Within normal limits MEDIASTINUM: Unremarkable LUNGS AND PLEURA: No acute lung process, pleural effusion or pneumothorax identified. BONY STRUCTURES: Thoracic spondylosis ADDITIONAL FINDINGS None XR/XR chest 2V IMPRESSION: No acute process. Impression dictated by: Cuong Colón M.D.04/16/2024 6:38 PM Dictation Location: [employer] Electronically authenticated by: [id number] Date: 04/16/2024 18:38
--- NOTE | 2024-04-16 13:30 | ECG_ITS ---
[facility] Test Date: 2024-04-16 Pat Name: RAGHAVENDRA TOTH Department: Room: - Gender: Male Title Coordinator: : [id number] Requested By: [id number] Order Number: [id number] Reading MD: SALIMA CAMERON M.D. Measurements Intervals [place] Rate: 56 P: 60 PA: 180 QRS: 44 QRSD: 113 T: 66 QT: 419 QTc: 404 Interpretive Statements SINUS BRADYCARDIA POSSIBLE LEFT ATRIAL ENLARGEMENT [-0.1mV P WAVE IN V1/V2] INCOMPLETE RIGHT BUNDLE BRANCH BLOCK [90+ ms QRS DURATION, TERMINAL R IN V1/V2, 40+ ms S IN I/aVL/V4/V5/V6] No previous ECG available for comparison Electronically Signed On 04-16-2024 17:48:55 EST by SALIMA CAMERON M.D.
--- NOTE | 2024-04-16 14:20 | PM.PRESUREVA ---
History of Present Illness History of Present Illness Chief complaint: Cervical Stenosis Narrative: Mr. Denis Beth is a pleasant 48 year old male with complaints of neck pain and right upper extremity radiculopathy and has about been evaluated by Dr. Saint Alas. He is scheduled for C4-5 and C6-7 anterior cervical discectomy and fusion. His diagnosis C4-C7 stenosis\radiculopathy, C6-C7 stenosis\radiculopathy\HNP. Review of Systems ROS Narrative REVIEW OF SYSTEMS: Negative except as stated in HPI, ten or more systems reviewed. Constitutional: No fever, chills, weakness ENT: No sore throat or epistaxis Cardiovascular: No edema, chest pain, palpitations, or activity intolerance Respiratory: No shortness of breath, cough, or wheezing Musculoskeletal: Complaints of neck pain and intermittent right upper extremity numbness tingling and zingers of pain Gastrointestinal: No abdominal pain, constipation, diarrhea, or vomiting Genitourinary: No dysuria or hematuria Neurological: No numbness, tingling, weakness, or headache Psychiatric: No mood changes PFSH PFSH Medical History (Updated 04/16/24 @ 14:00 by Torie Terrell) Cervical radiculopathy ?M54.12 - Radiculopathy, cervical region (ICD-10) Osteoarthritis ?M19.90 - Unspecified osteoarthritis, unspecified site (ICD-10) Neck pain ?M54.2 - Cervicalgia (ICD-10) Seasonal allergies ?J30.2 - Other seasonal allergic rhinitis (ICD-10) Surgical History (Updated 04/16/24 @ 13:59 by Torie Terrell) History of repair of rotator cuff ?Z98.890 - Other specified postprocedural states (ICD-10) History of tonsillectomy and adenoidectomy ?Z90.89 - Acquired absence of other organs (ICD-10) Family History (Updated 04/16/24 @ 13:56 by Torie Terrell) Other Family history of COPD (chronic obstructive pulmonary disease) Family history of breast cancer Family history of coronary artery disease Family history of diabetes mellitus Family history of hypertension Family history of myocardial infarction Family history of prostate cancer Social History (Updated 04/16/24 @ 13:51 by Torie Terrell) Within the past year, how often did you have a drink containing alcohol: never Score interpretation: A score less than 4 is consistent with normal alcohol consumption. 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 Highest level of school completed/degree received: some college, no degree Meds Home Medications and Allergies Allergies Allergy/AdvReac Type Severity Reaction Status Date / Time No Known Drug Allergies Allergy Verified 04/16/24 13:49 Exam Narrative Exam Narrative: Constitutional: Awake, alert, comfortable, well-appearing, nontoxic, interactive, vital signs as charted Head: Normocephalic, atraumatic Eyes: Conjunctiva and lids normal to inspection, pupils normal ENT: Tympanic membranes pearly garland, nonerythematous, noninjected, naris patent, posterior oropharynx clear, oral mucosa moist Neck: Supple, normal appearance, normal range of motion, no meningeal signs, no lymphadenopathy Respiratory: No respiratory distress, breath sounds clear Cardiovascular: Regular rate and rhythm, strong and regular heart tones Abdomen: Nontender, normal bowel sounds, soft, no CVA tenderness Musculoskeletal: Normal gait, no swelling or edema. Decreased sensation right upper extremity 1st through 3rd digits Skin: No rashes or induration, no lesions, only visible skin inspected Neuro: No neurological deficits, normal sensation Psychiatric: Oriented ?3, normal affect Assessment and Plan Assessment and Plan (1) Cervical stenosis of spine: Assessment and Plan: C4-C7 stenosis/radiculopathy C6-C7 stenosis/radiculopathy/HNP (2) Cervical radiculopathy: Plan He is scheduled for C4-C5 and C6-C7 anterior cervical discectomy and fusion with Dr. Saint Alas on April 30, 2024
[2024-04-16 14:42] LABS: Basophils Percent Auto 0.6 % (0.2-2.0); Eosinophils Absolute Auto 0.2 10^3/uL (0.0-0.7); Eosinophils Percent Auto 2.6 % (0.9-7.0); Hematocrit 41.7 % (42.0-54.0); Hemoglobin 14.6 g/dL (14.0-18.0); Immature Granulocytes Abs Auto 0.02 10^3/uL (0.00-0.03); Immature Granulocytes Pct Auto 0.3 % (0.0-0.5); Lymphocytes Absolute Auto 1.4 10^3/uL (1.2-3.8); Lymphocytes Percent Auto 21.5 % (20.5-60.0); Mean Corpuscular Hemoglobin 30.9 pg (25.9-34.0); Mean Corpuscular Volume 88.2 fL (80.0-94.0); Mean Platelet Volume 10.4 fL (9.5-13.5); Monocytes Absolute Auto 0.6 10^3/uL (0.3-0.8); Monocytes Percent Auto 8.9 % (1.7-12.0); Neutrophils Absolute Auto 4.3 10^3/uL (1.4-6.5); Neutrophils Percent Auto 66.1 % (43.0-75.0); Platelet Count 166 10^3/uL (150-450); Red Blood Count 4.73 10^6/uL (4.70-6.10); Red Cell Distribution Width 12.6 % (11.0-15.0); White Blood Count 6.6 10^3/uL (4.0-11.0)
[2024-04-16 14:50] LABS: INR 1.08; Partial Thromboplastin Time 27.2 sec (22.3-36.2); Prothrombin Time 11.4 sec (9.0-11.6)
[2024-04-16 14:52] LABS: Alanine Aminotransferase 24 U/L (16-63); Albumin Globulin Ratio 1.1; Alkaline Phosphatase 59 U/L (46-116); Anion Gap 10.1; Aspartate Amino Transferase 20 U/L (15-37); BUN Creatinine Ratio 20.9; Bilirubin Direct 0.1 mg/dL (0.0-0.2); Bilirubin Total 0.6 mg/dL (0.2-1.0); Calcium 9.1 mg/dL (8.5-10.1); Carbon Dioxide 29.8 mmol/L (21.0-32.0); Chloride 104 mmol/L (98-107); Estimated GFR (African America >60 (>=60 mL/min/1.73m^2); Estimated GFR (Non-African Ame >60 (>=60 mL/min/1.73m^2); Globulin 3.6 g/dL; Glucose 88 mg/dL (74-106); Potassium 3.9 mmol/L (3.5-5.1); Sodium 140 mmol/L (136-145); Total Protein 7.6 g/dL (6.4-8.2)
== END 2024-04-16 13:25 | disposition home or self-care (01) ==
LOC: PST 13:25
PROVIDERS: PCP Nurse Practitioner; Visit Provider Orthopaedic Surgery Orthopaedic Surgery of the Spine
DX: Z01.810 Encounter for preprocedural cardiovascular examination (principal); Z01.812 Encounter for preprocedural laboratory examination; Z01.818 Encounter for other preprocedural examination; M48.02 Spinal stenosis, cervical region
CPT/HCPCS: 71046; 80048; 80076; 85025; 85610; 85730; 86850; 86900; 86901; 87081; 93005; G0463

== ENCOUNTER 2024-04-19 14:42 | Outpatient (OUT) | payer OTHER, SELFPAY ==
--- NOTE | 2024-04-19 15:46 | PM.CN ---
Consult Note: HPI Data of Consult Patient: new to practice Consult date: 04/19/24 Requesting Physician: Jonah Call MD Primary Care Provider: KATLYN BENDER Consult Narrative Reason for consult: neck, right arm pain Narrative: 48yom who presents for evaluation. worsening pain from neck into right upper extremity. imaging reviewed, consistent with multiple levels of severe stenosis, worst at c4-5 and c6-7. has engaged in physical therapy, with limited benefit. does not use medications. cc:: CC: Jonah Call MD Review of Systems ROS Status of ROS 10 or more systems reviewed and unremarkable except as noted in history and [facility] Cervical radiculopathy ?M54.12 - Radiculopathy, cervical region (ICD-10) Osteoarthritis ?M19.90 - Unspecified osteoarthritis, unspecified site (ICD-10) Neck pain ?M54.2 - Cervicalgia (ICD-10) Seasonal allergies ?J30.2 - Other seasonal allergic rhinitis (ICD-10) Surgical History History of repair of rotator cuff ?Z98.890 - Other specified postprocedural states (ICD-10) History of tonsillectomy and adenoidectomy ?Z90.89 - Acquired absence of other organs (ICD-10) Family History Other Family history of COPD (chronic obstructive pulmonary disease) Family history of breast cancer Family history of coronary artery disease Family history of diabetes mellitus Family history of hypertension Family history of myocardial infarction Family history of prostate cancer Social History Within the past year, how often did you have a drink containing alcohol: never Score interpretation: A score less than 4 is consistent with normal alcohol consumption. 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 Attentive and appropriate, constitutionally normal, displays normal mood and affect per situation.? There are no obvious deficits in memory, reasoning, or intellect.? Skin-no obvious rashes, bruising, or erythema noted to the patient's area of pain.? Extremities-upper extremities are warm with minimal edema and palpable pulses. Cervical- tenderness to palpation noted in the cervical spine and paraspinal musculature.? Pain is elicited with flexion, extension, and lateral rotation of the cervical spine.? Range of motion is diminished due to pain. Facet loading maneuvers are negative.? Strength-unremarkable and within normal limits? Sensory-no notable sensory deficits in the bilateral upper extremities to touch or pinprick with the exception to decreased sensation to the right C5, 6, 7 dermatomal distribution.? Coordination remains intact.? Gait remains non-antalgic. Assessment and Plan Assessment and Plan (1) Cervical stenosis of spine: Plan 48yom who presents for evaluation. failed conservative measures, as noted. imaging reviewed, as noted. given symptoms and imaging, discussed that he may benefit from right c4-5, c6-7 tfesi under fluoroscopic guidance. he states that he already has appointment date for cervical fusion, so he will clarify with surgeon's office and let us know if he would like to proceed. meds reviewed, no changes. follow up after procedure.
== END 2024-04-19 14:43 | disposition home or self-care (01) ==
LOC: PM 14:44
PROVIDERS: PCP Nurse Practitioner; Visit Provider Anesthesiology
DX: M48.02 Spinal stenosis, cervical region (principal)
CPT/HCPCS: G0463

== ENCOUNTER 2024-04-29 15:36 | Outpatient (OUT) | payer OTHER, SELFPAY | END 2024-04-29 15:37 | disposition home or self-care (01) | LOC: LAB 15:36 | PROVIDERS: PCP Nurse Practitioner; Visit Provider Orthopaedic Surgery Orthopaedic Surgery of the Spine | DX: Z01.812 Encounter for preprocedural laboratory examination (principal); M48.02 Spinal stenosis, cervical region | CPT/HCPCS: 36415; 86850; 86900; 86901 ==

== ENCOUNTER 2024-04-30 10:46 | Observation (INO) | payer OTHER, SELFPAY ==
[2024-04-16 13:51] VITALS: BP 149/83; PULSE 57; TEMP 36.5; O2SAT 100; BMI 27.8
[2024-04-30] VITALS (14 sets, daily range): BP systolic 121–157; BP diastolic 67–88; PULSE 53–68; TEMP 36.1–36.8; O2SAT 94–99; BMI 27.5
--- OUTSIDE RECORDS SUMMARY | 2024-04-30 06:27 | XMS_ITS | CCD ---
Author Organization [facility] Care Team Providers Care Medical Records Analyst Name Role Phone BEE GARCIA Admitting Unavailable BEE GARCIA Attending Unavailable REQUEST, NONE LISTED Primary Care Unavailable RICARDO GIRARD Consulting Unavailable BEE GARCIA Consulting Unavailable KATLYN CORTEZ Referring Unavailable KATLYN CORTEZ Primary Care Unavailable Nader Retana Primary Care Provider [phone] No Pcp, No Pcp Primary Care Provider UnavailKatlyn Figueroa Primary Care Provid er KATLYN CORTEZ Attending Unavailable KATLYN CORTEZ Primary Care Unavailable KATLYN CORTEZ Attending Unavailable KATLYN CORTEZ Referring Unavailable KATLYN CORTEZ Primary Care Unavailable Jakub GOODWIN, Jonah Tracey Attending Unavailable Medications Completed/Discontinued Medications Medication Drug Class(es) Dates Sig (Normalized) Sig (Original) methylPREDNISolone (3 sources) Corticosteroid Start: 12-12-2023 End: 04-20-2024 methylPREDNISolone (MEDROL, MARCELINA,) 4 mg tablet TAKE 6 TABLETS ON DAY 1 DIRECTED ON PACKAGE AND DECREASE BY 1 TAB EACH DAY FOR A TOTAL OF 6 DAYS 12/12/2023 04/20/2024 Discontinued (Therapy completed) Start: 12-12-2023 methylPREDNISo lone (MEDROL, MARCELINA,) 4 mg tablet TAKE 6 TABLETS ON DAY 1 DIRECTED ON PACKAGE AND DECREASE BY 1 TAB EACH DAY FOR A TOTAL OF 6 DAYS 12/12/2023 Active tiZANidine 4 mg oral tablet (3 sources) Central alpha-2 Adrenergic Agonist Start: 12-16-2023 End: 04-20-2024 take 1 tablet by mouth every six hours as needed for muscle spasms tiZANidine (ZANAFLEX) 4 mg tablet Indications: Neck muscle spasm Take 1 tablet (4 mg total) by mouth every 6 (six) hours as needed for muscle spasms. 20 tablet 12/16/2023 04/20/2024 Discontinued (Therapy completed) Problems Active Problems Problem Classification Problem Date Documented Da te Episodic/Chronic Other eye disorders (4 sources) Ocular pain, right eye; Translations: [OCULAR PAIN RIGHT EYE] Onset: 04-12-2018 Episodic Other nervous system disorders (1 source) Other chronic pain; Translations: [Other chronic pain] Onset: 04-20-2024 Chronic Spondylosis; intervertebral disc disorders; other back problems (5 sources) Neck pain; Translations: [Cervicalgia] Onset: 04-20-2024 02-19-2024 Episodic Superficial injury; contusion (1 source) Injury of conjunctiva and corneal abrasion without foreign body, right eye, initial encounter; Translations: [INJ CONJ AND CA W/O FB RT EYE INITIAL] Onset: 04-14-2018 Episodic Unclassified (1 source) Pre-op Exam Onset: 04-20-2024 Unclassified (1 source) new patient Onset: 12-16-2023 Past or Other Problems Problem Classification Problem Date Documented Da te Episodic/Chronic Immunizations and screening for infectious disease (2 sources) Needs influenza immunization; Translations: [Encounter for immunization] Onset: 12-16-2023 12-16-2023 Episodic Mood disorders (4 sources) Mood disorders Onset: 10-06-2019 Resolved: 04-20-2024 10-06-2019 Other connective tissue disease (1 source) Muscle spasm of cervical muscle of neck; Translations: [Other muscle spasm] 12-16-2023 Episodic Other connective tissue disease (1 source) Other muscle spasm; Translations: [Other muscle spasm] Onset: 12-16-2023 Episodic Other ear and sense organ disorders (4 sources) Impacted cerumen in left ear; Translations: [Impacted cerumen, left ear] Onset: 10-06-2019 10-06-2019 Episodic Other screening for suspected conditions (not mental disorders or infectious disease) (3 sources) Patient encounter status; Translations: [Encounter for screening for malignant neoplasm of colon] Onset: 12-16-2023 12-16-2023 Episodic Unclassified (4 sources) Onset: 10-06-2019 Resolved: 04-20-2024 10-06-2019 Results Test Name Value Interpretation Reference Range Facil ity CBC AND AUTO DIFFon 12-16-19 24 ABSOLUTE BASOPHIL 0.0 X10E9/L Normal 0.0-0.2 [facility] Comment on above: Performed By: #### C BCA, CMP, 88655-8, HA1C, 3016-3 #### [facility] ([id number]) [address] [place] [address] ABSOLUTE NEUTROPHIL 4.8 X10E9/L Normal 1.5-6.6 [facility] Comment on above: Performed By: #### C BCA, CMP, 44542-2, HA1C, 6-3 #### [facility] ([id number]) [address], [address] [address] Basophils/100 WBC (Bld) 0.6 % Normal [facility] Comment on above: Performed By: #### C BCA, CMP, 99977-9, HA1C, 3015-3 #### [facility] ([id number]) [address], [address] [address] Eosinophils (Bld) [#/Vol] 0.1 10*3/uL Normal 0.0-0.4 [facility] Comment on above: Performed By: #### C BCA, CMP, 12984-1, HA1C, 3015-3 #### [facility] ([id number]) [address] [address] Eosinophils/100 WBC (Bld) 0.7 % Normal [facility] Comment on above: Performed By: #### C BCA, CMP, 93888-7, HA1C, 6-3 #### [facility] ([id number]) [address] [address] [place] [address] Erythrocyte distribution width (RBC) [Ratio] 13.2 % Normal 11.5-15.0 [facility] Comment on above: Performed By: #### C BCA, CMP, 18748-9, HA1C, 3016-3 #### [facility] ([id number]) [address], [address] [place] [address] Hematocrit (Bld) [Volume fraction] 41.5 % Normal 39-49 [facility] Comment on above: Performed By: #### C BCA, CMP, 31072-2, HA1C, 3015-3 #### [facility] ([id number]) [address], [address] [place] [address] Hemoglobin (Bld) [Mass/Vol] 14.4 g/dL Normal 13.0-17.0 [facility] Comment on above: Performed By: #### C BCA, CMP, 34944-3, HA1C, 3 #### [facility] ([id number]) [address], [address] [place] [address] Lymphocytes (Bld) [#/Vol] 1.6 10*3/uL Normal 1.0-3.5 [facility] Comment on above: Performed By: #### C BCA, CMP, 70057-6, HA, 3015-3 #### [facility] ([id number]) [address] [address] [place] [address] Lymphocytes/100 WBC (Bld) 22.4 % Normal [facility] Comment on above: Performed By: #### C BCA, CMP, 89006-3, HA1C, 3015-3 #### [facility] ([id number]) [address], [address] [place] [address] MCH (RBC) [Entitic mass] 31.2 pg Normal 27-34 [facility] Comment on above: Performed By: #### C BCA, CMP, 01309-4, HA1C, 3015-3 #### [facility] ([id number]) [address], [address] [place] [address] MCHC (RBC) [Mass/Vol] 34.7 g/dL Normal 32-36 [facility] Comment on above: Performed By: #### C BCA, CMP, 95133-5, HA1C, 3016-3 #### [facility] ([id number]) [address], [address] [place] [address] MCV (RBC) [Entitic vol] 90 fL Normal 80-100 [facility] Comment on above: Performed By: #### C BCA, CMP, 60625-2, HA1C, 6-3 #### [facility] ([id number]) [address], [address] [place] [address] Monocytes (Bld) [#/Vol] 0.7 10*3/uL Normal 0-0.9 [facility] Comment on above: Performed By: #### C BCA, CMP, 77222-6, HA1C, 3015-3 #### [facility] ([id number]) [address], [address] [place] [address] Monocytes/100 WBC (Bld) 10.2 % Normal [facility] Comment on above: Performed By: #### C BCA, CMP, 60574-2, HA1C, 3015- #### [facility] ([id number]) [address], [address] [place] [address] Neutrophils/100 WBC (Bld) 66.1 % Normal [facility] Comment on above: Performed By: #### C BCA, CMP, 95016-5, HA1C, 3015-3 #### [facility] ([id number]) [address], [address] [place] [address] Platelet mean volume (Bld) [Entitic vol] 9.4 fL Normal 7-12 [facility] Comment on above: Performed By: #### C BCA, CMP, 49349-6, HA1C, 6-3 #### [facility] ([id number]) [address], [address] [place] [address] Platelets (Bld) [#/Vol] 165 10*3/uL Normal 150-450 [facility] Comment on above: Performed By: #### C MARLYN ARCHIBALD, 88062-3, HA1C, 3016-3 #### [facility] ([id number]) [address], [address] [place] [address] RBC COUNT 4.62 X10E12/L Normal 4.10-5.70 [facility] Comment on above: Performed By: #### C DRAGAN, MARLYN, 68256-4, HA, 3016-3 #### [facility] ([id number]) [address] [facility] [place] [address] WBC (Bld) [#/Vol] 7.3 10*3/uL Normal 4.0-11.0 [facility] Comment on above: Performed By: #### Vandana ARCHIBALD CMP, 23397-4, [facility], 3016-3 #### [facility] ([id number]) [address], [address] [place] [address] CBC auto differentialon 11-0 Basophils (Bld) [#/Vol] 0 10*3/uL [facility] Basophils/100 WBC (Bld) 0.6 % [facility] Eosinophils (Bld) [#/Vol] 0.1 10*3/uL [facility] Eosinophils/100 WBC (Bld) 0.7 % [facility] Erythrocyte distribution width (RBC) [Ratio] 13.2 % 11.5 - 15.0 % [facility] Hematocrit (Bld) [Volume fraction] 41.5 % 39 - 49 % [facility] Hemoglobin (Bld) [Mass/Vol] 14.4 g/dL 13.0 - 17.0 g/dL [facility] Lymphocytes (Bld) [#/Vol] 1.6 10*3/uL [facility] Lymphocytes/100 WBC (Bld) 22.4 % [facility] MCH (RBC) [Entitic mass] 31.2 pg 27 - 34 pg [facility] MCHC (RBC) [Mass/Vol] 34.7 g/dL 32 - 36 g/dL [facility] MCV (RBC) [Entitic vol] 90 fL 80 - 100 fL [facility] Monocytes (Bld) [#/Vol] 0.7 10*3/uL [facility] Monocytes/100 WBC (Bld) 10.2 % [facility] Neutrophils (Bld) [#/Vol] 4.8 10*3/uL [facility] Neutrophils/100 WBC (Bld) 66.1 % [facility] Platelet mean volume (Bld) [Entitic vol] 9.4 fL 7 - 12 fL [facility] Platelets (Bld) [#/Vol] 165 10*3/uL [facility] RBC (Bld) [#/Vol] 4.62 10*6/uL [facility] WBC corrected for nucl RBC Auto (Bld) [#/Vol] 7.3 [facility] COMPREHENSIVE METABOLIC PANE Florencio 12-16-2023 Albumin [Mass/Vol] 4.6 g/dL Normal 3.2-5.3 [facility] Comment on above: Performed By: #### C DRAGAN CMP, 14787-0, HA1C, 3016-3 #### [facility] ([id number]) [address], [address] [place] [address] ALP [Catalytic activity/Vol] 49 U/L Normal 39-130 [facility] Comment on above: Performed By: #### C BCA, CMP, 31418-7, HA1C, 3016-3 #### [facility] ([id number]) [address], [address] [place] [address] ALT [Catalytic activity/Vol] 25 U/L Normal 0-40 [facility] Comment on above: Performed By: #### C BCA, CMP, 33495-8, HA1C, 3016-3 #### [facility] ([id number]) [address], [address] [place] [address] Anion gap [Moles/Vol] 9 mmol/L Normal 5-15 [facility] Comment on above: Performed By: #### C BCA, CMP, 57074-2, HA1C, 3016-3 #### [facility] ([id number]) [address], [address] [place] [address] AST [Catalytic activity/Vol] 23 U/L Normal 0-41 [facility] Comment on above: Performed By: #### C BCA, CMP, 54993-7, HA1C, 3016-3 #### [facility] ([id number]) [address], [address] [place] [address] Bilirubin [Mass/Vol] 0.8 mg/dL Normal 0.3-1.2 [facility] Comment on above: Performed By: #### C BCA, CMP, 26619-3, HA1C, 3016-3 #### [facility] ([id number]) [address], [address] [place] [address] Calcium [Mass/Vol] 9.7 mg/dL Normal 8.5-10.5 [facility] Comment on above: Performed By: #### C BCA, CMP, 08047-7, HA1C, 6-3 #### [facility] ([id number]) [address], [address] [place] [address] Chloride [Moles/Vol] 102 mmol/L Normal 98-109 [facility] Comment on above: Performed By: #### C BCA, CMP, 68557-5, HA1C, 6-3 #### [facility] ([id number]) [address], [address] [place] [address] CO2 [Moles/Vol] 26 mmol/L Normal 22-32 [facility] Comment on above: Performed By: #### C BCA, CMP, 27028-3, HA1C, 3016-3 #### [facility] ([id number]) [address] [address] [place] [address] Creatinine [Mass/Vol] 0.86 mg/dL Normal 0.60-1.30 [facility] Comment on above: Result Comment: METH OD TRACEABLE TO IDMS STANDARD Performed By: #### C BCA, CMP, 51170-1, HA1C, 3016-3 #### [facility] ([id number]) [address] [address] [place] [address] eGFR (CKD-EPI) NON-RACE DEPENDENT >90 Normal >59 [facility] Comment on above: Result Comment: Reported eGFR is based on the CKD-EPI 2020 equation that does not use a race coefficient. Performed By: #### C BCA, CMP, 12663-2, HA1C, 6-3 #### [facility] ([id number]) [address] [address] Glucose [Mass/Vol] 88 mg/dL Normal 65-99 [facility] Comment on above: Performed By: #### C BCA, CMP, 59435-0, HA1C, 6-3 #### [facility] ([id number]) [address] [address] Potassium [Moles/Vol] 3.8 mmol/L Normal 3.5-5.0 [facility] Comment on above: Performed By: #### C BCA, CMP, 72148-7, HA1C, 6-3 #### [facility] ([id number]) [address] [address] [place] [address] Protein [Mass/Vol] 7.7 g/dL Normal 6.0-8.0 [facility] Comment on above: Performed By: #### C BCA, CMP, 43147-8, HA1C, 3016-3 #### [facility] ([id number]) [address] [address] [place] [address] Sodium [Moles/Vol] 137 mmol/L Normal 134-146 [facility] Comment on above: Performed By: #### C BCA, CMP, 71120-2, HA1C, 3016-3 #### [facility] ([id number]) [address], [address] [place] [address] Urea nitrogen [Mass/Vol] 22 mg/dL Normal 5-23 [facility] Comment on above: Performed By: #### C BCA, CMP, 41293-7, HA1C, 3016-3 #### [facility] ([id number]) [address], [address] [place] [address] Comprehensive metabolic pane florencio 12-16-2023 Albumin [Mass/Vol] 4.6 g/dL 3.2 - 5.3 g/dL Pr [facility] ALP [Catalytic activity/Vol] 49 U/L 39 - 130 U/L [facility] ALT No additional P-5'-P [Catalytic activity/Vol] 25 U/L 0 - 40 U/L [facility] Anion gap [Moles/Vol] 9 mmol/L 5 - 15 mmol/L [facility] AST [Catalytic activity/Vol] 23 U/L 0 - 41 U/L [facility] Bilirubin [Mass/Vol] 0.8 mg/dL 0.3 - 1.2 mg/dL [facility] Calcium [Mass/Vol] 9.7 mg/dL 8.5 - 10.5 mg/dL [facility] Chloride [Moles/Vol] 102 mmol/L 98 - 109 mmol/L [facility] CO2 [Moles/Vol] 26 mmol/L 22 - 32 mmol/L [facility] Creatinine [Mass/Vol] 0.86 mg/dL 0.60 - 1.30 mg/dL [facility] Comment on above: METHOD TRACEABLE TO IDMS STANDARD eGFR (CKD-EPI)non-race dependent - PINF [facility] Comment on above: Reported eGFR is based on the CKD-EPI 2020 equation that does not use a race coefficient. Glucose [Mass/Vol] 88 mg/dL 65 - 99 mg/dL [facility] Potassium [Moles/Vol] 3.8 mmol/L 3.5 - 5.0 mmol /L [facility] Protein [Mass/Vol] 7.7 g/dL 6.0 - 8.0 g/dL Pr [facility] Sodium [Moles/Vol] 137 mmol/L 134 - 146 mmol/L [facility] Urea nitrogen [Mass/Vol] 22 mg/dL 5 - 23 mg/dL [facility] HGB A1C (GLYCO-HGB)on 2023 Glucose [Mass/Vol] 105 mg/dL Normal [facility] Comment on above: Performed By: #### C MARLYN ARCHIBALD, 89070-2, HA, 3016-3 #### [facility] ([id number]) [address] [place] [address], [facility] [address] [place] [address] HbA1c (Bld) [Mass fraction] 5.3 % Normal 4.4-5.6 [facility] Comment on above: Result Comment: NOTE ADA Guidelines Result HgbA1c Normal : less than 5.7 % Prediabetes : 5.7 % to 6.4 % Diabetes : > 6.4 % Use with caution in patients with abnormal hemoglobin variants as the half-life of red blood cells and in vivo glycation rates are affected. Performed By: #### Vandana ARCHIBALD CMP, 27318-7, HA1C, 3016-3 #### [facility] ([id number]) [address] [place] [address], [address] [place] [address] Hemoglobin A1con 12-16-2023 Average glucose Estimated from glycated hemoglobin (Bld) [Mass/Vol] 105 mg/dL [facility] HbA1c (Bld) [Mass fraction] 5.3 % 4.4 - 5.6 % [facility] Comment on above: NOTE ADA Guidelines Result HgbA1c Normal : less than 5.7 % Prediabetes : 5.7 % to 6.4 % Diabetes : > 6.4 % Use with caution in patients with abnormal hemoglobin variants as the half-life of red blood cells and in vivo glycation rates are affected. [facility] Lipid 1996 panelon 4 Cholesterol [Mass/Vol] 196 mg/dL 150 - 200 mg/dL [facility] Cholesterol in HDL [Mass/Vol] 69 mg/dL 39 - PINF mg/dL [facility] Comment on above: HDL <40 mg/dL - High Risk HDL > or = 40mg/dL- Desirable HDL >60 mg/dL - Negative Risk Cholesterol in LDL [Mass/Vol] 104 mg/dL NINF - 130 mg/dL [facility] Comment on above: LDL <100 mg/dL - Desirable LDL >160 mg/dL - High Risk Cholesterol in VLDL [Mass/Vol] 23 mg/dL 0 - 30 mg/dL [facility] Cholesterol.total/Cho lesterol in HDL [Mass ratio] 2.8 {ratio} 1.0 - 5.0 [facility] Triglyceride [Mass/Vol] 116 mg/dL 27 - 150 mg/dL [facility] Cholesterol [Mass/Vol] 196 mg/dL Normal 150-200 [facility] Comment on above: Performed By: #### C BCA, [facility], 82556-6, HA1C, 3016-3 #### [facility] ([id number]) [address] [facility] [facility] [facility] [place] [address] Cholesterol in HDL [Mass/Vol] 69 mg/dL Normal >39 [facility] Comment on above: Result Comment: HDL <40 mg/dL - High Risk HDL > or = 40mg/dL- Desirable HDL >60 mg/dL - Negative Risk Performed By: #### C BCA, CMP, 60455-2, HA1C, 3016-3 #### [facility] ([id number]) [address] [address] Cholesterol in LDL [Mass/Vol] 104 mg/dL Normal <130 [facility] Comment on above: Result Comment: LDL <100 mg/dL - Desirable LDL >160 mg/dL - High Risk Performed By: #### C BCA, CMP, 02641-2, HA1C, 3016-3 #### [facility] ([id number]) [address] [address] Cholesterol in VLDL [Mass/Vol] 23 mg/dL Normal 0-30 [facility] Comment on above: Performed By: #### C BCA, CMP, 06131-3, HA1C, 3016-3 #### [facility] ([id number]) [address] [address] CHOLESTEROL:HDL 2.8 Normal 1.0-5.0 [facility] Comment on above: Performed By: #### Vandana BCA, CMP, 62670-5, HA1C, 3016-3 #### [facility] ([id number]) [address] [address] Triglyceride [Mass/Vol] 116 mg/dL Normal 27-150 [facility] Comment on above: Performed By: #### C BCA, CMP, 92744-3, HA1C, 3016-3 #### [facility] ([id number]) [address] [address] No Panel Informationon 12-15 [facility] TSH Qnon 12-16-2023 TSH 1.94 uIU/mL Normal 0.49-4.67 [facility] Comment on above: Performed By: #### C BCA, [facility], 10626-5, HA1C, 3016-3 #### [facility] ([id number]) [address] [facility] [place] [address] Vital Signs Date Time Vital Sign Value Performing Clinician Zakiya cantu 04-20-2024 06:56-0400 Body height 186.7 cm Katlyn Cortez APRN-PHYSICAL THERAPY AIDES TEACHER Work Phone: [facility] 04-20-2024 06:56-0400 Body mass index (BMI) [Ratio] 27.41 kg/m2 Katlyn Cortez LCPC-PHYSICAL THERAPY AIDES TEACHER Work Phone: [facility] 04-20-2024 06:56-0400 Body temperature 97.7 [degF] Katlyn Cortez APRN-PHYSICAL THERAPY AIDES TEACHER Work Phone: [facility] 04-20-2024 06:56-0400 Body weight 95.53 kg Katlyn Cortez LCPC-PHYSICAL THERAPY AIDES TEACHER Work Phone: [facility] 04-20-2024 06:56-0400 Diastolic blood pressure 82 mm[Hg] Katlyn Cortez APRN-PHYSICAL THERAPY AIDES TEACHER Work Phone: [facility] 04-20-2024 06:56-0400 Heart rate 54 /min Katlynlindsey Cortez LCPC-PHYSICAL THERAPY AIDES TEACHER Work Phone: [facility] 04-20-2024 06:56-0400 Respiratory rate 18 /min Katlyn Cortez LCPC-PHYSICAL THERAPY AIDES TEACHER Work Phone: [facility] 04-20-2024 06:56-0400 SaO2% (BldA) [Mass fraction] 97 % Katlyn Cortez APRN-PHYSICAL THERAPY AIDES TEACHER Work Phone: [facility] 04-20-2024 06:56-0400 Systolic blood pressure 122 mm[Hg] Katlyn Cortez LCPC-PHYSICAL THERAPY AIDES TEACHER Work Phone: [facility] 12-16-2023 13:52-0500 Body height 186.7 cm Katlyn Cortez APRN-PHYSICAL THERAPY AIDES TEACHER Work Phone: [facility] [employer] [facility] 12-16-2023 13:52-0500 Body mass index (BMI) [Ratio] 24.55 kg/m2 Katlyn Cortez APRN-PHYSICAL THERAPY AIDES TEACHER Work Phone: [facility] [employer] [facility] 12-16-2023 13:52-0500 Body temperature 97.5 [degF] Katlyn Cortez APRN-PHYSICAL THERAPY AIDES TEACHER Work Phone: [facility] [employer] [facility] 12-16-2023 13:52-0500 Body weight 85.55 kg Katlyn Cortez APRN-PHYSICAL THERAPY AIDES TEACHER Work Phone: [facility] [employer] [facility] 12-16-2023 13:52-0500 Diastolic blood pressure 82 mm[Hg] Katlyn Cortez APRN-PHYSICAL THERAPY AIDES TEACHER Work Phone: [facility] [employer] [facility] 12-16-2023 13:52-0500 Heart rate 53 /min Katlyn Cortez APRN-PHYSICAL THERAPY AIDES TEACHER Work Phone: [facility] [employer] [facility] 12-16-2023 13:52-0500 Respiratory rate 18 /min Katlyn Cortez APRN-PHYSICAL THERAPY AIDES TEACHER Work Phone: [facility] [employer] [facility] 12-16-2023 13:52-0500 SaO2% (BldA) [Mass fraction] 99 % Katlyn Cortez APRN-PHYSICAL THERAPY AIDES TEACHER Work Phone: [facility] [employer] [facility] 12-16-2023 13:52-0500 Systolic blood pressure 120 mm[Hg] Katlyn Cortez APRN-PHYSICAL THERAPY AIDES TEACHER Work Phone: [facility] Encounters Encounter Date Encounter Type Care Provider Facility Start: 04-20-2024 End: 04-20-2024 Office outpatient visit 15 minutes Katlynjose Cortez APRN-PHYSICAL THERAPY AIDES TEACHER Work Phone: [facility] Internal Medicine - Family Medicine Comment on above: Chronic neck pain (P rimary Dx); Preoperative clearance Start: 04-20-2024 End: 04-20-[address] [facility] Kimberly [facility] LCPC-PHYSICAL THERAPY AIDES TEACHER Work Phone: [facility] Work Phone: Start: 04-20-2024 End: 04-20-2024 ambulatory [facility] Start: 04-20-2024 Encounter for other preprocedural examination [facility] Start: 04-19-2024 End: 04-19-2024 ambulatory Jonah Call MD Facility:[facility] Start: 03-30-2024 End: 03-30-2024 Patient encounter procedure Shola Miguel MD Work Phone: [facility] Comment on above: Cervical radiculopat hy (Primary Dx); Herniation of cervical intervertebral disc with radiculopathy Start: 03-18-2024 End: 03-30-2024 ambulatory Kathleen Mayfield RN [facility] Comment on above: Health education (Pr imary Dx) Start: 03-18-2024 End: 03-30-2024 Telemedicine consultation with patient Kathleen Tran GAYTAN [facility] Start: 02-17-2024 End: 02-19-2024 Chart abstracting Jose Tobar MD Work Phone: Neurology Start: 12-18-2023 End: 12-18-2023 Telephone encounter Luz Demarco CMA [facility] Internal Medicine - Family Medicine Start: 12-16-2023 End: 12-16-2023 ambulatory [facility] Start: 12-16-2023 Encounter for genera l adult medical examination without abnormal findings [facility] Start: 12-16-2023 End: 12-16-2023 Initial preventive medicine new patient 40-64yrs Katlyn Clineillo LCPC-PHYSICAL THERAPY AIDES TEACHER Work Phone: [facility] Internal Medicine - Family Medicine Comment on above: Annual physical exam (Primary Dx); Neck muscle spasm; Special screening for malignant neoplasm of colon; Blood tests for routine general physical examination; Need for influenza vaccination Start: 12-16-2023 End: 12-16-2023 Patient encounter procedure Katlyn Cortez LCPC-PHYSICAL THERAPY AIDES TEACHER Work Phone: [facility] Start: 12-16-2023 End: 12-16-2023 Physical examination [facility] Work Phone: [facility] Start: 12-16-2023 End: 12-16-2023 ambulatory [facility] Start: 12-16-2023 Encounter for genera l adult medical examination without abnormal findings [facility] Start: 11-17-2023 End: 11-19-2023 Telephone encounter [facility]lyn Cortez [facility] Work Phone: [facility] Internal Medicine - Family Medicine Start: 04-12-2018 End: 04-12-2018 Patient encounter procedure [facility] Facility: Procedures Date Procedure Procedure Detail Performing Clinician Start: 04-20-2024 Adult depression screening assessment [facility]lyn Cortez [facility] Work Phone: Start: 12-16-2023 Lipid 1996 panel - S juancarlos or Plasma Shola Miguel MD Work Phone: Plan of Treatment Date Care Activity Detail Author Start: 12-15-2028 Lipid panel Lipid Screening [facility] Start: 03-17-2027 Screening for malign ant neoplasm of colon Colon Cancer Screening 3 Year Cologuard [facility] Start: 03-10-2027 Screening for malign ant neoplasm of colon [facility] Start: 12-15-2026 Diabetes Screening Diabetes Screenin g [facility] Start: 04-20-2025 Adult BMI Screening Adult BMI Screen ing [facility] Start: 04-20-2025 Depression Screening Depression Scre ening [facility] Start: 04-20-2025 Tobacco Screening Tobacco Screening [facility] Start: 12-16-2024 End: 12-16-2024 Patient encounter procedure 12/16/2024 3:20 PM EST [facility] [address] [place] [address] Katlyn Cortez, LCPC-PHYSICAL THERAPY AIDES TEACHER [address] [place] [address] [facility] Internal [facility] - Family Medicine Start: 12-15-2024 Adult BMI Screening Adult BMI Screen ing [facility] Start: 12-15-2024 Tobacco Screening Tobacco Screening [facility] Start: 12-16-2023 End: 12-16-2023 Patient encounter procedure 12/16/2023 2:00 PM EST Office Visit [facility] Internal Medicine - Family Medicine [address] [place] [address] Katlyn Cortez, LCPC-PHYSICAL THERAPY AIDES TEACHER [address] [place] [address] [facility] Internal [facility] - Family Medicine Start: 10-12-2023 Covid-19 Vaccine ( season) Covid-19 Vaccine ( season) [facility] Start: 10-12-2023 COVID-19 Vaccine ( season) COVID-19 Vaccine ( season) [facility] Start: 10-12-2023 Influenza vaccination Influenza Vacc ine [facility] Start: 08-27-2023 DTaP,Tdap and Td Vaccines (2 - Td or Tdap) DTaP,Tdap and Td Vaccines (2 - Td or Tdap) [facility] Start: 2021 Screening for malign ant neoplasm of colon [facility] Start: 08-17-1995 DTaP,Tdap and Td Vaccines (1 - Tdap) DTaP,Tdap and Td Vaccines (1 - Tdap) [facility] Start: 08-17-1995 Hepatitis B Vaccine (1 of 3 - 19+ 3-dose series) Hepatitis B Vaccine (1 of 3 - 19+ 3-dose series) [facility] Start: 08-17-1995 Urine microalbumin profile DTaP,Tdap,Td Vaccine (1 - Tdap) [facility] Start: 1994 Adult BMI Follow Up Plan Adult BMI Follow Up Plan [facility] Start: 1994 Adult BMI Screening Adult BMI Screen ing [facility] Start: 1994 Anxiety Screening Anxiety Screening [facility] Start: 1994 Depression Screening Depression Scre ing [facility] Start: 1994 Hepatitis C screening Hepatitis C Sc reening [facility] Start: 1994 HIV screening HIV Screening [facility] Start: 1988 Depression Screening Depression Scre ening [facility] Start: 1988 Tobacco Screening Tobacco Screening [facility] Cologuard [facility] Lab Routine Special screening for malignant neoplasm of colon Ordered: 12/16/2023 [facility] Work Phone: Comment on above: Ordered: 12/16/2023 End: 12-15-2024 Thyrotropin [Units/volume] in Serum or Plasma TSH Lab Routine Blood tests for routine general physical examination 1 Occurrences starting 12/16/2023 until 12/15/2024 [facility] Comment on above: 1 Occurrences starti ng 12/16/2023 until 12/15/2024 Thyrotropin [Units/volume] in Serum or Plasma TSH Lab Routine Blood tests for routine general physical examination 12/16/2023 5:54 PM EST [facility] End: 03-20-2025 XR CERV OTHER 4V AP/LAT/FLX/EXT XR CERV OTHER 4V AP/LAT/FLX/EXT Radiology Routine Neck pain 1 Occurrences starting 02/19/2024 until 03/20/2025 [facility] Work Phone: Comment on above: 1 Occurrences starti ng 02/19/2024 until 03/20/2025 Immunizations Immunization Date Immunization Notes Care Provider Nelly tee 12-16-2023 influenza, seasonal, injectable, preservative free Katlyn CERVANTES Work Phone: [facility] 12-16-2023 Immunization, In Clinic,; Translations: [Drug or medicament (substance)] Katlyn CERVANTES Work Phone: [facility] Payers Date Payer Category Payer Unknown 2022 Managed Care Other (unspecified) [employer] [id number] 2022 Private Health Insurance [id number] 2022 Unknown [id number] 1976 Unknown [id number] 1976 Unknown [id number] 1976 Unknown [id number] 1976 Unknown [id number] 1976 Unknown [id number] 1959 Unknown [id number] Social History Date Type Detail Facility [facility] smoking consumption unknown [facility] Start: 1975 Sex assigned at Not on file [facility] Start: 10-06-2019 End: 02-25-2020 Gender identity Not on file [facility] Start: 10-06-2019 Tobacco smoking stat [facility] Never smoked tobacco [facility] Start: 10-06-2019 Tobacco use and exposure Smokeless tobacco non-user [facility] Start: 10-06-2019 End: 04-20-2024 Alcoholic beverage intake Lifetime non-drinker (finding) [facility] Start: 10-06-2019 End: 02-25-2020 History of Social function [facility] How often to you hav e a drink containing alcohol? Never [facility] Average Number of Drinks Not on file [facility] Start: 09-15-2014 Sex Male (finding) [facility] Clinical Notes 11-17-2023 to 04-20-2024 Katlyn Cortez APRN-PHYSICAL THERAPY AIDES TEACHER - 04/20/2024 7:00 AM Shola Jaramillo MD - 03/30/2024 4:55 PM Kathleen Esquivel RN - 03/18/2024 2:56 PM Tom eHnry APRN.PHYSICAL THERAPY AIDES TEACHER - 02/19/2024 12:09 PM EST Note Date & Type Note Facility 04-20-2024 History of Presen t illness Narrative Images from the original note were not included. [address] [place] [address] SUBJECTIVE: Patient ID: Denis Beth is a 48 y.o. male. Chief Complaint Patient presents with Pre-op Exam Patient presents for preoperative clearance. Is planning on having C4/5 and C6/7 anterior discectomy with fusion and fixation per Dr. Kendall Alas. His pain includes posterior neck pain that radiates into his right shoulder and down the posterior aspect of his right arm. His diagnosis is C4-C7 stenosis with radiculopathy. He is experiencing numbness in his right index finger. He has tried conservative methods which include physical therapy. Pre-op Exam Associated symptoms include neck pain. Pertinent negatives include no chest pain, chills, coughing, fatigue, fever or headaches. The following portions of the patient's history [...] mRNA, LNP-S, PF, 30mcg/0.3mL Dose 05/11/2020, 06/01/2020 Influenza (IM) Preservative Free 12/16/2023 REVIEW OF SYSTEMS: Review of Systems Constitutional: [...] bruise/bleed easily. Psychiatric/Behavioral: Negative. PHYSICAL EXAMINATION: Vitals: 04/20/24 0656 BP: 122/82 BP Site: Left Arm BP Postition: Sitting Pulse: 54 Resp: 18 Temp: 36.5 C (97.7 F) TempSrc: Tympanic SpO2: 97% Weight: 95.5 kg (210 lb 9.6 oz) Height: 186.7 cm (6' 1.5 ) Patient noted to have elevated BMI and the following intervention(s) were applied: encouragement to exercise. Physical Exam Vitals and nursing note reviewed. [...] normal. ASSESSMENT/PLAN: Denis was seen today for pre-op exam. Diagnoses and all orders for this visit: Chronic neck pain Preoperative clearance Is planning on having C4/5 and C6/7 anterior discectomy with fusion and fixation per Dr. Kendall Alas. States he had labs and EKG done at [facility]. Reviewed labs; CBC with diff., PT/PTT, CMP Chest xray EKG; reveals sinus bradycardia. Patient is medically cleared to proceed with surgery. ALL QUESTIONS ANSWERED Total time spent was 25 minutes: Preparing to see the patient (e.g., review of tests) Obtaining and/or reviewing separately obtained history Performing a medically appropriate examination and/or evaluation Counseling and educating the patient/family/caregiver Ordering medications, tests, or procedures Follow-up: Next scheduled BILLY Quiñonez 04/20/24 1556 documented in this encounter [facility] 03-30-2024 Note HNO ID: [id number] Author: SHOLA MIGUEL MD Service: ? Author [...] advised him that if a patient like kailyn was seen by me in my office [...] surgery following either procedure. Shola Miguel MD [facility] 03-30-2024 History of Presen t illness Narrative [...] Shola Miguel MD documented in this encounter [facility] 03-18-2024 History of Presen t illness Narrative Images from the original note were not included. Virtual Second Opinions by [facility] Specific Physician Requested by patient: N/A PATIENT INFORMATION: Patient Name: Denis Beth [facility]: [id number] : 1975 Chief Complaint: Second Opinion for [...] surgery, which is scheduled for 04/[address] [facility]. Questions related to second opinion: 1. Is there any other treatment available? 2. Is a disc replacement an option? 3. Would like to know if there are other treatments over a fusion. Records to Request [facility] [place] [address] [address], [place] [address] MR Office notes 12/2023-present Images are already available with reports in scanned doc PATIENT NAME: Denis Beth INTAKE DATE: March 18, 2024 INTAKE TIME: 2:57 PM ADJUSTMENT EXAMINER: Kathleen Tran, RN documented in this encounter [facility] 02-19-2024 Note HNO ID: [id number] Author: TOM PALAFOX APRN.PHYSICAL THERAPY AIDES TEACHER Service: ? Author Type: Nurse Practitioner Type: [...] Aburto per patient request (sooner availability than jorg ea). Instruct patient to bring copy of CD imaging to appointment. Patient offered surgery and has severe findings on imaging. If patient would like sooner appointment can schedule with brian pacenta; xr cerv ordered to be completed prior [facility] 02-19-2024 History of Presen t illness Narrative [...] like sooner appointment can schedule with brian pacenta; xr cerv ordered to be completed prior Patient name: Denis Beth Are you being referred by a [facility] Provider or Pain Management Provider at [facility]? No If answer is YES please [...] facility where the MRI/CT/myelogram was completed: [facility] Address: [address] [place] [address] MRI/CT/myelogram viewable in Epic: No If not, please provide [phone] to fax in imaging reports for review. [...] where the surgery was completed: Additional Comments [phone] (Home Phone) documented in this encounter [facility] 02-17-2024 Note HNO ID: [id number] Author: ?, ?, ? Service: ? Author Type: ? Type: Progress Notes Filed: 02/19/2024 12:14 Note Text: Patient name: Denis Beth Are you being referred by a [place] [facility] Provider or Pain Management Provider at [facility]? No If answer is YES please [...] facility where the MRI/CT/myelogram was completed: [facility] Address: [address] [place] [address] MRI/CT/myelogram viewable in Epic: No If not, please provide [phone] to fax in imaging reports for review. [...] where the surgery was completed: Additional Comments [phone] (Home Phone) [facility] 12-18-2023 Miscellaneous Notes Formattin g of this note might be different from the original. ----- Message from BILLY Arana sent at 12/18/2023 9:09 AM EST ----- Reviewed. Labs are excellent. Read note to pt. Pt verbalizes understanding. documented in this encounter [facility] 12-18-2023 Telephone encount er Note ----- Message from BILLY Arana sent at 12/18/2023 9:09 AM EST ----- Reviewed. Labs are excellent. [facility] 12-18-2023 Telephone encount er Note Read note to pt. Pt verbalizes understanding. [facility] 12-16-2023 History of Presen t illness Narrative Images from the original note were not included. [address] [place] [address] SUBJECTIVE: Patient ID: Dneis Beth is a 48 y.o. male. Chief [...] Quiñonez 12/16/23 1444 documented in this encounter [facility] 11-17-2023 Miscellaneous Notes Formattin g of this note might be different from the original. Patient used to be yours and wants to come back, will you accept That is fine Scheduled documented in this encounter [facility] 11-17-2023 Telephone encount er Note Patient used to be yours and wants to come back, will you accept [facility] 11-17-2023 Telephone encount er Note That is fine [facility] [employer] [facility] 11-17-2023 Telephone encount er Note Scheduled [facility] Evaluation note Diagnosis Neck pain- Primary Cervicalgia [facility] Diagnosis Annual physical exam- Primary Routine [...] inoculation against influenza documented in this encounter [facility]* Diagnosis Cervical radiculopathy- Primary Brachial neuritis or radiculitis nos Herniation of cervical intervertebral disc with radiculopathy Displacement of cervical intervertebral disc without myelopathy documented [facility]* Diagnosis Health education- Primary Counseling NOS documented in this [facility]* Diagnosis Chronic neck pain- Primary Cervicalgia Preoperative clearance Unspecified pre-operative examination documented in this encounter [facility] [employer] SystemInstructionsNot on filedocumented in this encounter [facility]* Attachments The following attachments cannot be sent through Care Everywhere. * Yearly Physical for Adults (Jamaican) [facility] System[facility]ructionsNot on file documented in [facility]* Attachments The following attachments cannot be sent through Care Everywhere. * Chronic pain (Jamaican) documented [facility] HospitalReason for referral (narrative)* Diagnostic Procedure Only (Routine) - New Request Specialty Diagnoses / Procedures Referred By Harpreet t Referred To Contact XR IMAGING Diagnoses Neck pain Procedures XR CERV OTHER 4V AP/LAT/FLX/EXT RADEX SPINE CERVICAL 4 OR 5 VIEWS Tom Palafox APRN.CNP [address] [id number] Xr Imaging [facility] Referral ID Status Reason Start Date Expiration Date Visits Requested Visits Authorized [id number] New Request Auto-Generat ed Referral 02/19/2024 03/20/2025 1 1 [facility] Summary Purpose Family History No Family [...] DATE CREATED AUTHOR 04/15/2018 [facility] DATE CREATED AUTHOR AUTHOR'S ORGANIZ ATION 12/18/2023 [facility] DATE CREATED AUTHOR AUTHOR'S ORGANIZ ATION 04/01/2024 [facility] DATE CREATED AUTHOR AUTHOR'S ORGANIZ ATION 04/22/2024 [facility] DATE CREATED AUTHOR AUTHOR'S ORGANIZ ATION 04/26/2024 [facility] Source Comments (unrecognize d section and content) In the event this informatio n is protected by the Federal Confidentiality of Alcohol and Drug Abuse Patient Records regulations: The Federal rules restrict any use of the information to criminally investigate or prosecute any alcohol or drug abuse patient.[facility] the event this information is protected by the Federal Confidentiality of Alcohol and Drug Abuse Patient Records regulations: The Federal rules restrict any use of the information to criminally investigate or prosecute any alcohol or drug abuse patient.[facility] System[facility] the event this information is protected by the Federal Confidentiality of Alcohol and Drug Abuse Patient Records regulations: The Federal rules restrict any use of the information to criminally investigate or prosecute any alcohol or drug abuse patient.[facility] Care Teams (unrecognized sec tion and content) Medical Records Analyst Relationship Specialty Start Date End Date [address] [place] [address] PCP - General Family Medicine 03/11/13 Medical Records Analyst Relationship Specialty Start Date End Date No Pcp, [place] [address] PCP - General Family Medicine 08/23/19 Medical Records Analyst Relationship Specialty Start Date End Date Katlyn Cortez APRN-[facility] [address] [place] [address] PCP - General Family Medicine 12/16/23 Medical Records Analyst Relationship Specialty Start Date End Date Katlyn Cortez APRN-[facility] [address] [place] [address] PCP - General Family Medicine 12/16/23 Medical Records Analyst Relationship Specialty Start Date End Date [address] [place] [address] PCP - General Family Medicine 03/11/13 Medical Records Analyst Relationship Specialty Start Date End Date [address] [place] [address] PCP - General Family Medicine 03/11/13 Medical Records Analyst Relationship Specialty Start Date End Date Katlyn Cortez, LCPC-PHYSICAL THERAPY AIDES TEACHER [address] [place] [address] PCP - General Family Medicine 12/16/23 Reason for Visit (unrecogniz ed section and content) Reason Comments new patient Reason Comments Trigger Point Injection Reason Comments Second Opinion Reason Comments Pre-op Exam FOR RECORDS PERTAINING TO PATIENTS WHO ARE [...] BE BASED ON THE PRIMARY CLINICAL RECORDS. [facility] [employer] [facility]. provides no warranty or guarantee of the accuracy or completeness of information in this document.
[2024-04-30] MEDS: LACTATED RINGER'S SOLUTION 1,000 ML 50 ML IV ×2 (07:07→09:25)
[2024-04-30] MEDS: CEFAZOLIN SODIUM 2 GM/50 ML D5W PREMIX IV (07:34)
--- NOTE | 2024-04-30 09:34 | PM.ONB ---
Brief Operative Note Date of procedure: 04/30/24 Pre-op diagnosis general: C4-5 and C6-7 stenosis Post-op diagnosis: same as pre-op Procedure: C4-5 and C6-7 ACDF Anesthesia: TADEOA Surgeon: Kassie Watts Marketing Assistant: Jorge Palomo Estimated blood loss (mL): 20 Pathology: none sent Condition: stable Disposition: PACU
--- NOTE | 2024-04-30 09:40 | P.ON_ITS ---
Surgery Operative Note Operative Note Procedure Date: 04/30/24 Time Out Performed: yes Pre-op Diagnosis: 1. ?C4-C5 and C6-C7 cervical stenosis with radiculopathy. 2. ?C4-C5 and C6-C7 degenerative disc disease. 3. C4-C5 and C6-C7 herniated nucleus pulposus Post-op Diagnosis: same as pre-op Procedures performed: 1. ?C4-C5 and C6-C7 anterior cervical diskectomy and fusion with decompression and stabilization of spinal cord and nerve roots. 2. ?C4-C5 [place]-C stand alone cage with 12 and 14-mm screws, Spinal Elements 3. C6-C7 [place]-C stand alone cage with 12 and 14-mm screws, Spinal Elements Anesthesia: GETA Primary Surgeon: Kassie Watts Complications: None Estimated blood loss (mL): 20 Findings: Stenosis Specimens: None Drains: HARVEY x 1 Indications for Procedures: This is a 48-year-old male with refractory neck and arm pain with numbness in the hands from cervical stenosis primarily at C4 through C5 and C6 through C7. ?Patient had tried and failed conservative therapy including medication management and chiropractic treatment.?Due to the persistence of symptoms and reduction in ADLs, patient elected surgical treatment. Patient therefore understood the indications for the surgery as well as risks, benefits, and alternatives. ?These risks included, but are not limited to, paralysis, infection, dural tear, hematoma, nerve root injury, nonunion, permanent speech and swallowing disturbances, DVT/PE, stroke, MD, etc. All questions were answered and informed consent was obtained. Detailed description of Procedure: The patient was taken to the operating room by Anesthesiology Service and had satisfactory general anesthesia. ?A first-generation cephalosporin was given within 1 hour of surgical incision, 2 g of cefazolin was given IV. ?Venous thromboembolic prophylaxis was performed with sequential devices. ?The patient was then positioned supine on a standard OR table, occiput in a doughnut. Neck extended well within the means of what can be tolerated neurologically. The anterior neck was then prepped and draped entirely in the usual sterile fashion. Before incision, a formal time-out was taken per protocol. ?We next took a left- sided Fermin-Castillo approach to the anterior cervical spine. ?A vertical incision was made in line with the skin crease. The platysma was divided in line with this incision. ?Blunt dissection was then proceeded medial to the sternocleidomastoid and carotid sheath. The omohyoid was divided.?The carotid artery was palpated and retracted laterally.? The anterior cervical spine was visualized and a localization needle was placed in the disc space and intraoperative radiographic localization of level was confirmed. ?We then elevated the longus colli from C4 through C5 and C6 through C7. Satisfied with the exposure and confirmation of level, we placed the self- retaining retractor at C4-C5. We then began complete diskectomy with a variety of curettes from uncus to uncus under [place] pin distraction. Bilateral endplate decortications were then performed with a high-speed chanelle going back to the PLL. ?The PLL was then resected, incised in the midline going to neural foramina bilaterally. ?This was done until we could see the exiting portion of the C5 nerve roots. This thereby totally decompressed the neural elements. ?Satisfied with this, we then achieved hemostasis and sized the interspace. ?A size 7-mm [place]-C stand alone cage was found to be appropriate. The cage was packed with DBM and impacted into position. It was then stabilized with 14 and 12-mm screws, one inferior and one superior respectively. Excellent torque insertion achieved. Locking mechanism engaged. [place] pins removed and hemostasis achieved. Satisfied with this, we then repositioned the self-retaining retractor at C6-C7 and repeated the same procedure. ?Once again, complete diskectomy was performed with a variety of curettes from uncus to uncus. ?Bilateral endplate decortications were performed with a high-speed chanelle going back to the PLL. ?The PLL was then resected, incised in the midline going to neural foramina bilaterally. ?This was done until we could see the exiting portion of the C7 nerve roots. This thereby totally decompressed our neural elements. ?Satisfied with this, we then achieved hemostasis and sized the interspace. ?A size 8-mm [place]-C stand alone cage was found to be appropriate. The cage was packed with DBM and impacted into position. It was then stabilized with 14 and 12-mm screws, one inferior and one superior respectively. Excellent torque insertion achieved. Locking mechanism engaged. Final x-rays were taken demonstrating good position of the spine and all of the implants. Satisfied with this, we then achieved hemostasis. ?We then copiously irrigated the wound. ?We then inserted a HARVEY drain through a separate stab incision. ?The wound was then closed in layers with a single running 2-0 Vicryl suture. ?A 4-0 Monocryl was used for the skin. The skin edges were sealed with Dermabond. ?Steri-strips were placed over the incision. A dry sterile dressing was applied. Cervical collar secured into place. ?The patient was then returned to the hospital bed, extubated, and taken to the recovery room in stable condition. Spinal cord monitoring remained stable throughout the operation.? CUSTOMER EXPERIENCE LEADER: ?Jorge Palomo PA-C. Jorge Palomo PA-C, assisted throughout the procedure with positioning, draping, retraction, wound closure, and dressing application POSTOPERATIVE CARE: ?The patient will be recovered in PACU and then a regular nursing floor. ?Once the drainage is low and pain is under control, patient will be discharged home per clinical indication. Patient will follow up in the office in six weeks. ?At that time, AP and lateral x-rays of the cervical spine will be obtained to assess instrumentation and fusion. Concrete Batcher: Jorge Palomo
[2024-04-30] MEDS: 0.9 % SODIUM CHLORIDE 1,000 ML 100 ML IV ×2 (10:14→20:57)
--- NOTE | 2024-04-30 10:18 | PC.NURSE ---
no drainage on dressing
--- OUTSIDE RECORDS SUMMARY | 2024-04-30 11:08 | XMS_ITS | CCD ---
Author Organization 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 Name Role Phone BEE GARICA Admitting Unavailable BEE GARCIA Attending Unavailable REQUEST, NONE LISTED Primary Care Unavailable RICARDO GIRARD Consulting Unavailable BEE GARCIA Consulting Unavailable KATLYN CORTEZ Referring Unavailable KATLYN CORTEZ Primary Care Unavailable Nader Retana Primary Care Provider [phone] No Pcp, No Pcp Primary Care Provider [...] 24 ABSOLUTE BASOPHIL 0.0 X10E9/L Normal 0.0-0.2 [facility] Comment on above: Performed By: #### C BCA, CMP, 58846-1, HA1C, 3016-3 #### [facility] ([id number]) [address] [address] [place] [address] ABSOLUTE NEUTROPHIL 4.8 X10E9/L Normal 1.5-6.6 [facility] Comment on above: Performed By: #### C BCA, CMP, 67756-2, HA1C, 6-3 #### [facility] ([id number]) [address], [address] [address] Basophils/100 WBC (Bld) 0.6 % Normal [facility] Comment on above: Performed By: #### C BCA, CMP, 48510-7, HA1C, 3015-3 #### [facility] ([id number]) [address], [address] [address] Eosinophils (Bld) [#/Vol] 0.1 10*3/uL Normal 0.0-0.4 [facility] Comment on above: Performed By: #### C BCA, CMP, 26278-8, HA1C, 3015-3 #### [facility] ([id number]) [address] [address] Eosinophils/100 WBC (Bld) 0.7 % Normal [facility] Comment on above: Performed By: #### C BCA, CMP, 69197-7, HA1C, 6-3 #### [facility] ([id number]) [address] [address] [place] [address] Erythrocyte distribution width (RBC) [Ratio] 13.2 % Normal 11.5-15.0 [facility] Comment on above: Performed By: #### C BCA, CMP, 57563-6, HA1C, 3016-3 #### [facility] ([id number]) [address] [place], [address] [place] [address] Hematocrit (Bld) [Volume fraction] 41.5 % Normal 39-49 [facility] Comment on above: Performed By: #### C BCA, CMP, 76434-4, HA1C, 3015-3 #### [facility] ([id number]) [address] [place], [address] [place] [address] Hemoglobin (Bld) [Mass/Vol] 14.4 g/dL Normal 13.0-17.0 [facility] Comment on above: Performed By: #### C BCA, CMP, 36562-8, HA1C, 3 #### [facility] ([id number]) [address], [address] [place] [address] Lymphocytes (Bld) [#/Vol] 1.6 10*3/uL Normal 1.0-3.5 [facility] Comment on above: Performed By: #### C BCA, CMP, 32242-6, HA, 3015-3 #### [facility] ([id number]) [address] [address] [place] [address] Lymphocytes/100 WBC (Bld) 22.4 % Normal [facility] Comment on above: Performed By: #### C BCA, CMP, 07903-7, HA1C, 3015-3 #### [facility] ([id number]) [address], [address] [place] [address] MCH (RBC) [Entitic mass] 31.2 pg Normal 27-34 [facility] Comment on above: Performed By: #### C BCA, CMP, 73839-0, HA1C, 3015-3 #### [facility] ([id number]) [address], [address] [place] [address] MCHC (RBC) [Mass/Vol] 34.7 g/dL Normal 32-36 [facility] Comment on above: Performed By: #### C BCA, CMP, 58794-1, HA1C, 3016-3 #### [facility] ([id number]) [address], [address] [place] [address] MCV (RBC) [Entitic vol] 90 fL Normal 80-100 [facility] Comment on above: Performed By: #### C BCA, CMP, 50453-8, HA1C, 6-3 #### [facility] ([id number]) [address], [address] [place] [address] Monocytes (Bld) [#/Vol] 0.7 10*3/uL Normal 0-0.9 [facility] Comment on above: Performed By: #### C BCA, CMP, 84682-3, HA1C, 3015-3 #### [facility] ([id number]) [address], [address] [place] [address] Monocytes/100 WBC (Bld) 10.2 % Normal [facility] Comment on above: Performed By: #### C BCA, CMP, 19625-4, HA1C, 3015- #### [facility] ([id number]) [address], [address] [place] [address] Neutrophils/100 WBC (Bld) 66.1 % Normal [facility] Comment on above: Performed By: #### C BCA, CMP, 28254-3, HA1C, 3015-3 #### [facility] ([id number]) [address], [address] [place] [address] Platelet mean volume (Bld) [Entitic vol] 9.4 fL Normal 7-12 [facility] Comment on above: Performed By: #### C BCA, CMP, 13636-5, HA1C, 6-3 #### [facility] ([id number]) [address], [address] [place] [address] Platelets (Bld) [#/Vol] 165 10*3/uL Normal 150-450 [facility] Comment on above: Performed By: #### C MARLYN ARCHIBALD, 26263-3, HA1C, 3016-3 #### [facility] ([id number]) [address] [place], [address] [place] [address] RBC COUNT 4.62 X10E12/L Normal 4.10-5.70 [facility] Comment on above: Performed By: #### C DRAGAN, MARLYN, 19432-3, HA, 3016-3 #### [facility] ([id number]) [address] [facility] [place] [address] WBC (Bld) [#/Vol] 7.3 10*3/uL Normal 4.0-11.0 [facility] Comment on above: Performed By: #### Vandana ARCHIBALD CMP, 37874-5, [facility], 3016-3 #### [facility] ([id number]) [address] [place], [address] [place] [address] CBC auto differentialon 11-0 Basophils (Bld) [#/Vol] 0 10*3/uL [facility] Basophils/100 WBC (Bld) 0.6 % [facility] Eosinophils (Bld) [#/Vol] 0.1 10*3/uL [facility] Eosinophils/100 WBC (Bld) 0.7 % [facility] Erythrocyte distribution width (RBC) [Ratio] 13.2 % 11.5 - 15.0 % [facility] Hematocrit (Bld) [Volume fraction] 41.5 % 39 - 49 % [facility] Hemoglobin (Bld) [Mass/Vol] 14.4 g/dL 13.0 - 17.0 g/dL [facility] Lymphocytes (Bld) [#/Vol] 1.6 10*3/uL [facility] Lymphocytes/100 WBC (Bld) 22.4 % [facility] MCH (RBC) [Entitic mass] 31.2 pg 27 - 34 pg [facility] MCHC (RBC) [Mass/Vol] 34.7 g/dL 32 - 36 g/dL [facility] MCV (RBC) [Entitic vol] 90 fL 80 - 100 fL [facility] Monocytes (Bld) [#/Vol] 0.7 10*3/uL [facility] Monocytes/100 WBC (Bld) 10.2 % [facility] Neutrophils (Bld) [#/Vol] 4.8 10*3/uL [facility] Neutrophils/100 WBC (Bld) 66.1 % [facility] Platelet mean volume (Bld) [Entitic vol] 9.4 fL 7 - 12 fL [facility] Platelets (Bld) [#/Vol] 165 10*3/uL [facility] RBC (Bld) [#/Vol] 4.62 10*6/uL [facility] WBC corrected for nucl RBC Auto (Bld) [#/Vol] 7.3 [facility] COMPREHENSIVE METABOLIC PANE Florencio 12-16-2023 Albumin [Mass/Vol] 4.6 g/dL Normal 3.2-5.3 [facility] Comment on above: Performed By: #### C DRAGAN CMP, 22910-8, HA1C, 3016-3 #### [facility] ([id number]) [address] [place], [address] [place] [address] ALP [Catalytic activity/Vol] 49 U/L Normal 39-130 [facility] Comment on above: Performed By: #### C BCA, CMP, 66186-3, HA1C, 3016-3 #### [facility] ([id number]) [address] [place], [address] [place] [address] ALT [Catalytic activity/Vol] 25 U/L Normal 0-40 [facility] Comment on above: Performed By: #### C BCA, CMP, 34441-5, HA1C, 3016-3 #### [facility] ([id number]) [address] [place], [address] [place] [address] Anion gap [Moles/Vol] 9 mmol/L Normal 5-15 [facility] Comment on above: Performed By: #### C BCA, CMP, 65044-2, HA1C, 3016-3 #### [facility] ([id number]) [address], [address] [place] [address] AST [Catalytic activity/Vol] 23 U/L Normal 0-41 [facility] Comment on above: Performed By: #### C BCA, CMP, 83609-9, HA1C, 3016-3 #### [facility] ([id number]) [address] [place] [place], [address] [place] [address] Bilirubin [Mass/Vol] 0.8 mg/dL Normal 0.3-1.2 [facility] Comment on above: Performed By: #### C BCA, CMP, 57058-4, HA1C, 3016-3 #### [facility] ([id number]) [address], [address] [place] [address] Calcium [Mass/Vol] 9.7 mg/dL Normal 8.5-10.5 [facility] Comment on above: Performed By: #### C BCA, CMP, 42906-1, HA1C, 6-3 #### [facility] ([id number]) [address] [place], [address] [place] [address] Chloride [Moles/Vol] 102 mmol/L Normal 98-109 [facility] Comment on above: Performed By: #### C BCA, CMP, 55867-0, HA1C, 6-3 #### [facility] ([id number]) [address] [place], [address] [place] [address] CO2 [Moles/Vol] 26 mmol/L Normal 22-32 [facility] Comment on above: Performed By: #### C BCA, CMP, 59526-1, HA1C, 3016-3 #### [facility] ([id number]) [address] [address] [place] [address] Creatinine [Mass/Vol] 0.86 mg/dL Normal 0.60-1.30 [facility] Comment on above: Result Comment: METH OD TRACEABLE TO IDMS STANDARD Performed By: #### C BCA, CMP, 44013-5, HA1C, 3016-3 #### [facility] ([id number]) [address] [address] [place] [address] eGFR (CKD-EPI) NON-RACE DEPENDENT >90 Normal >59 [facility] Comment on above: Result Comment: Reported eGFR is based on the CKD-EPI 2020 equation that does not use a race coefficient. Performed By: #### C BCA, CMP, 65796-0, HA1C, 6-3 #### [facility] ([id number]) [address] [address] Glucose [Mass/Vol] 88 mg/dL Normal 65-99 [facility] Comment on above: Performed By: #### C BCA, CMP, 43158-2, HA1C, 6-3 #### [facility] ([id number]) [address] [address] Potassium [Moles/Vol] 3.8 mmol/L Normal 3.5-5.0 [facility] Comment on above: Performed By: #### C BCA, CMP, 43796-5, HA1C, 6-3 #### [facility] ([id number]) [address] [address] [place] [address] Protein [Mass/Vol] 7.7 g/dL Normal 6.0-8.0 [facility] Comment on above: Performed By: #### C BCA, CMP, 86913-4, HA1C, 3016-3 #### [facility] ([id number]) [address] [address] [place] [address] Sodium [Moles/Vol] 137 mmol/L Normal 134-146 [facility] Comment on above: Performed By: #### C BCA, CMP, 71089-3, HA1C, 3016-3 #### [facility] ([id number]) [address] [place], [address] [place] [address] Urea nitrogen [Mass/Vol] 22 mg/dL Normal 5-23 [facility] Comment on above: Performed By: #### C BCA, CMP, 61343-0, HA1C, 3016-3 #### [facility] ([id number]) [address] [place], [address] [place] [address] Comprehensive metabolic pane florencio 12-16-2023 Albumin [Mass/Vol] 4.6 g/dL 3.2 - 5.3 g/dL Pr [facility] ALP [Catalytic activity/Vol] 49 U/L 39 - 130 U/L [facility] ALT No additional P-5'-P [Catalytic activity/Vol] 25 U/L 0 - 40 U/L [facility] Anion gap [Moles/Vol] 9 mmol/L 5 - 15 mmol/L [facility] AST [Catalytic activity/Vol] 23 U/L 0 - 41 U/L [facility] Bilirubin [Mass/Vol] 0.8 mg/dL 0.3 - 1.2 mg/dL [facility] Calcium [Mass/Vol] 9.7 mg/dL 8.5 - 10.5 mg/dL [facility] Chloride [Moles/Vol] 102 mmol/L 98 - 109 mmol/L [facility] CO2 [Moles/Vol] 26 mmol/L 22 - 32 mmol/L [facility] Creatinine [Mass/Vol] 0.86 mg/dL 0.60 - 1.30 mg/dL [facility] Comment on above: METHOD TRACEABLE TO IDMS STANDARD eGFR (CKD-EPI)non-race dependent - PINF [facility] Comment on above: Reported eGFR is based on the CKD-EPI 2020 equation that does not use a race coefficient. Glucose [Mass/Vol] 88 mg/dL 65 - 99 mg/dL [facility] Potassium [Moles/Vol] 3.8 mmol/L 3.5 - 5.0 mmol /L [facility] Protein [Mass/Vol] 7.7 g/dL 6.0 - 8.0 g/dL Pr [facility] Sodium [Moles/Vol] 137 mmol/L 134 - 146 mmol/L [facility] Urea nitrogen [Mass/Vol] 22 mg/dL 5 - 23 mg/dL [facility] HGB A1C (GLYCO-HGB)on 2023 Glucose [Mass/Vol] 105 mg/dL Normal [facility] Comment on above: Performed By: #### C MARLYN ARCHIBALD, 82607-1, HA, 3016-3 #### [facility] ([id number]) [address] [place] [address], [facility] [address] [place] [address] HbA1c (Bld) [Mass fraction] 5.3 % Normal 4.4-5.6 [facility] Comment on above: Result Comment: NOTE ADA Guidelines Result HgbA1c Normal : less than 5.7 % Prediabetes : 5.7 % to 6.4 % Diabetes : > 6.4 % Use with caution in patients with abnormal hemoglobin variants as the half-life of red blood cells and in vivo glycation rates are affected. Performed By: #### Vandana ARCHIBALD CMP, 25785-4, HA1C, 3016-3 #### [facility] ([id number]) [address] [place] [address], [address] [place] [address] Hemoglobin A1con 12-16-2023 Average glucose Estimated from glycated hemoglobin (Bld) [Mass/Vol] 105 mg/dL [facility] HbA1c (Bld) [Mass fraction] 5.3 % 4.4 - 5.6 % [facility] Comment on above: NOTE ADA Guidelines Result HgbA1c Normal : less than 5.7 % Prediabetes : 5.7 % to 6.4 % Diabetes : > 6.4 % Use with caution in patients with abnormal hemoglobin variants as the half-life of red blood cells and in vivo glycation rates are affected. [facility] Lipid 1996 panelon 4 Cholesterol [Mass/Vol] 196 mg/dL 150 - 200 mg/dL [facility] Cholesterol in HDL [Mass/Vol] 69 mg/dL 39 - PINF mg/dL [facility] Comment on above: HDL <40 mg/dL - High Risk HDL > or = 40mg/dL- Desirable HDL >60 mg/dL - Negative Risk Cholesterol in LDL [Mass/Vol] 104 mg/dL NINF - 130 mg/dL [facility] Comment on above: LDL <100 mg/dL - Desirable LDL >160 mg/dL - High Risk Cholesterol in VLDL [Mass/Vol] 23 mg/dL 0 - 30 mg/dL [facility] Cholesterol.total/Cho lesterol in HDL [Mass ratio] 2.8 {ratio} 1.0 - 5.0 [facility] Triglyceride [Mass/Vol] 116 mg/dL 27 - 150 mg/dL [facility] Cholesterol [Mass/Vol] 196 mg/dL Normal 150-200 [facility] Comment on above: Performed By: #### C BCA, [facility], 96387-4, HA1C, 3016-3 #### [facility] ([id number]) [address] [facility] [place] [address] Cholesterol in HDL [Mass/Vol] 69 mg/dL Normal >39 [facility] Comment on above: Result Comment: HDL <40 mg/dL - High Risk HDL > or = 40mg/dL- Desirable HDL >60 mg/dL - Negative Risk Performed By: #### C BCA, CMP, 97754-2, HA1C, 3016-3 #### [facility] ([id number]) [address] [address] Cholesterol in LDL [Mass/Vol] 104 mg/dL Normal <130 [facility] Comment on above: Result Comment: LDL <100 mg/dL - Desirable LDL >160 mg/dL - High Risk Performed By: #### C BCA, CMP, 54299-3, HA1C, 3016-3 #### [facility] ([id number]) [address] [address] Cholesterol in VLDL [Mass/Vol] 23 mg/dL Normal 0-30 [facility] Comment on above: Performed By: #### C BCA, CMP, 28802-6, HA1C, 3016-3 #### [facility] ([id number]) [address] [address] CHOLESTEROL:HDL 2.8 Normal 1.0-5.0 [facility] Comment on above: Performed By: #### Vandana BCA, CMP, 04279-7, HA1C, 3016-3 #### [facility] ([id number]) [address] [address] Triglyceride [Mass/Vol] 116 mg/dL Normal 27-150 [facility] Comment on above: Performed By: #### C BCA, CMP, 07240-0, HA1C, 3016-3 #### [facility] ([id number]) [address] [address] No Panel Informationon 12-15 [facility] TSH Qnon 12-16-2023 TSH 1.94 uIU/mL Normal 0.49-4.67 [facility] Comment on above: Performed By: #### C BCA, [facility], 01574-7, HA1C, 3016-3 #### [facility] ([id number]) [address] [facility] [place] [address] Vital Signs Date Time Vital Sign Value Performing Clinician Zakiya cantu 04-20-2024 06:56-0400 Body height 186.7 cm Katlyn Cortez APRN-BRAKE ASSEMBLER Work Phone: [facility] 04-20-2024 06:56-0400 Body mass index (BMI) [Ratio] 27.41 kg/m2 Katlyn Cortez PROTECTOR PLATE ATTACHER-BRAKE ASSEMBLER Work Phone: [facility] 04-20-2024 06:56-0400 Body temperature 97.7 [degF] Katlyn Cortez APRN-BRAKE ASSEMBLER Work Phone: [facility] 04-20-2024 06:56-0400 Body weight 95.53 kg Katlyn Cortez PROTECTOR PLATE ATTACHER-BRAKE ASSEMBLER Work Phone: [facility] 04-20-2024 06:56-0400 Diastolic blood pressure 82 mm[Hg] Katlyn Cortez APRN-BRAKE ASSEMBLER Work Phone: [facility] 04-20-2024 06:56-0400 Heart rate 54 /min Katlynlindsey Cortez PROTECTOR PLATE ATTACHER-BRAKE ASSEMBLER Work Phone: [facility] 04-20-2024 06:56-0400 Respiratory rate 18 /min Katlyn Cortez PROTECTOR PLATE ATTACHER-BRAKE ASSEMBLER Work Phone: [facility] 04-20-2024 06:56-0400 SaO2% (BldA) [Mass fraction] 97 % Katlyn Cortez APRN-BRAKE ASSEMBLER Work Phone: [facility] 04-20-2024 06:56-0400 Systolic blood pressure 122 mm[Hg] Katlyn Cortez PROTECTOR PLATE ATTACHER-BRAKE ASSEMBLER Work Phone: [facility] 12-16-2023 13:52-0500 Body height 186.7 cm Katlyn Cortez APRN-BRAKE ASSEMBLER Work Phone: [facility] 12-16-2023 13:52-0500 Body mass index (BMI) [Ratio] 24.55 kg/m2 Katlyn Cortez APRN-BRAKE ASSEMBLER Work Phone: [facility] 12-16-2023 13:52-0500 Body temperature 97.5 [degF] Katlyn Cortez APRN-BRAKE ASSEMBLER Work Phone: [facility] 12-16-2023 13:52-0500 Body weight 85.55 kg Katlyn Cortez APRN-BRAKE ASSEMBLER Work Phone: [facility] 12-16-2023 13:52-0500 Diastolic blood pressure 82 mm[Hg] Katlyn Cortez APRN-BRAKE ASSEMBLER Work Phone: [facility] 12-16-2023 13:52-0500 Heart rate 53 /min Katlyn Cortez APRN-BRAKE ASSEMBLER Work Phone: [facility] 12-16-2023 13:52-0500 Respiratory rate 18 /min Katlyn Cortez APRN-BRAKE ASSEMBLER Work Phone: [facility] 12-16-2023 13:52-0500 SaO2% (BldA) [Mass fraction] 99 % Katlyn Cortez APRN-BRAKE ASSEMBLER Work Phone: [facility] 12-16-2023 13:52-0500 Systolic blood pressure 120 mm[Hg] Katlyn Cortez APRN-BRAKE ASSEMBLER Work Phone: [facility] Encounters Encounter Date Encounter Type Care Provider Facility Start: 04-20-2024 End: 04-20-2024 Office outpatient visit 15 minutes Katlynjose Cortez APRN-BRAKE ASSEMBLER Work Phone: [facility] Internal Medicine - Family Medicine Comment on above: Chronic neck pain (P rimary Dx); Preoperative clearance Start: 04-20-2024 End: 04-20-2024 Preoperative state [facility] PROTECTOR PLATE ATTACHER-BRAKE ASSEMBLER Work Phone: [facility] Work Phone: Start: 04-20-2024 End: 04-20-2024 ambulatory [facility] Start: 04-20-2024 Encounter for other preprocedural examination [facility] Start: 04-19-2024 End: 04-19-2024 ambulatory Jonah Call MD Facility:[facility] Start: 03-30-2024 End: 03-30-2024 Patient encounter procedure Shola Miguel MD Work Phone: [facility] Comment on above: Cervical radiculopat hy (Primary [...] End: 12-18-2023 Telephone encounter Luz Demarco CMA [facility] Internal Medicine - Family Medicine Start: 12-16-2023 End: 12-16-2023 ambulatory [facility] Start: 12-16-2023 Encounter for genera l adult medical examination without abnormal findings [facility] Start: 12-16-2023 End: 12-16-2023 Initial preventive medicine new patient 40-64yrs Katlyn Clineillo PROTECTOR PLATE ATTACHER-BRAKE ASSEMBLER Work Phone: [facility] Internal Medicine - Family Medicine Comment on above: Annual physical exam (Primary Dx); Neck muscle spasm; Special screening for malignant neoplasm of colon; Blood tests for routine general physical examination; Need for influenza vaccination Start: 12-16-2023 End: 12-16-2023 Patient encounter procedure Katlyn Cortez PROTECTOR PLATE ATTACHER-BRAKE ASSEMBLER Work Phone: [facility] Start: 12-16-2023 End: 12-16-2023 Physical examination [facility] Work Phone: [facility] Start: 12-16-2023 End: 12-16-2023 ambulatory [facility] Start: 12-16-2023 Encounter for genera l adult medical examination without abnormal findings [facility] Start: 11-17-2023 End: 11-19-2023 Telephone encounter Katlyn Cortez [facility] Work Phone: [facility] Internal Medicine - Family Medicine Start: 04-12-2018 End: 04-12-2018 Patient encounter procedure [facility] Facility: Procedures Date Procedure Procedure Detail Performing Clinician Start: 04-20-2024 Adult depression screening assessment Katlyn Cortez [facility] Work Phone: Start: 12-16-2023 Lipid 1996 panel - S juancarlos or Plasma Shola Miguel MD Work Phone: Plan of Treatment Date Care Activity Detail Author Start: 12-15-2028 Lipid panel Lipid Screening [facility] Start: 03-17-2027 Screening for malign ant neoplasm of colon Colon Cancer Screening 3 Year Cologuard [facility] Start: 03-10-2027 Screening for malign ant neoplasm of colon [facility] Start: 12-15-2026 Diabetes Screening Diabetes Screenin g [facility] Start: 04-20-2025 Adult BMI Screening Adult BMI Screen ing [facility] Start: 04-20-2025 Depression Screening Depression Scre ening [facility] Start: 04-20-2025 Tobacco Screening Tobacco Screening [facility] [facility] Start: 12-16-2024 End: 12-16-2024 Patient encounter procedure 12/16/2024 3:20 PM EST [facility] [address] [place] [address] Katlyn Cortez, PROTECTOR PLATE ATTACHER-BRAKE ASSEMBLER [address] [place] [address] [facility] Internal Medicine - Family Medicine Start: 12-15-2024 Adult BMI Screening Adult BMI Screen ing [facility] Start: 12-15-2024 Tobacco Screening Tobacco Screening [facility] Start: 12-16-2023 End: 12-16-2023 Patient encounter procedure 12/16/2023 2:00 PM EST Office Visit [facility] Internal Medicine - Family Medicine [address] [place] [address] Katlyn Cortez, PROTECTOR PLATE ATTACHER-BRAKE ASSEMBLER [address] [place] [address] [facility] Internal Medicine - Family Medicine Start: 10-12-2023 Covid-19 Vaccine ( season) Covid-19 Vaccine ( season) [facility] Start: 10-12-2023 COVID-19 Vaccine ( season) COVID-19 Vaccine ( season) [facility] Start: 10-12-2023 Influenza vaccination Influenza Vacc ine [facility] Start: 08-27-2023 DTaP,Tdap and Td Vaccines (2 - Td or Tdap) DTaP,Tdap and Td Vaccines (2 - Td or Tdap) [facility] Start: 2021 Screening for malign ant neoplasm of colon [facility] Start: 08-17-1995 DTaP,Tdap and Td Vaccines (1 - Tdap) DTaP,Tdap and Td Vaccines (1 - Tdap) [facility] Start: 08-17-1995 Hepatitis B Vaccine (1 of 3 - 19+ 3-dose series) Hepatitis B Vaccine (1 of 3 - 19+ 3-dose series) [facility] Start: 08-17-1995 Urine microalbumin profile DTaP,Tdap,Td Vaccine (1 - Tdap) [facility] Start: 1994 Adult BMI Follow Up Plan Adult BMI Follow Up Plan [facility] Start: 1994 Adult BMI Screening Adult BMI Screen ing [facility] Start: 1994 Anxiety Screening Anxiety Screening [facility] Start: 1994 Depression Screening Depression Scre ing [facility] Start: 1994 Hepatitis C screening Hepatitis C Sc reening [facility] Start: 1994 HIV screening HIV Screening [facility] Start: 1988 Depression Screening Depression Scre ening [facility] Start: 1988 Tobacco Screening Tobacco Screening [facility] Cologuar d [facility] Lab Routine Special screening for malignant neoplasm of colon Ordered: 12/16/2023 [facility] Work Phone: Comment on above: Ordered: 12/16/2023 End: 12-15-2024 Thyrotropin [Units/volume] in Serum or Plasma TSH Lab Routine Blood tests for routine general physical examination 1 Occurrences starting 12/16/2023 until 12/15/2024 [facility] Comment on above: 1 Occurrences starti ng 12/16/2023 until 12/15/2024 Thyrotropin [Units/volume] in Serum or Plasma TSH Lab Routine Blood tests for routine general physical examination 12/16/2023 5:54 PM EST [facility] End: 03-20-2025 XR CERV OTHER 4V AP/LAT/FLX/EXT XR CERV OTHER 4V AP/LAT/FLX/EXT Radiology Routine Neck pain 1 Occurrences starting 02/19/2024 until 03/20/2025 [facility] Work Phone: Comment on above: 1 Occurrences starti ng 02/19/2024 until 03/20/2025 Immunizations Immunization Date Immunization Notes Care Provider Nelly tee 12-16-2023 influenza, seasonal, injectable, preservative free Katlyn CERVANTES Work Phone: [facility] 12-16-2023 Immunization, In Clinic,; Translations: [Drug or medicament (substance)] Katlyn CERVANTES Work Phone: [facility] Payers Date Payer Category Payer Unknown 2022 Managed Care Other (unspecified) [employer] [id number] 2022 Private Health Insurance [id number] 2022 Unknown [id number] 1976 Unknown [id number] 1976 Unknown [id number] 1976 Unknown [id number] 1976 Unknown [id number] 1976 Unknown [id number] 1959 Unknown [id number] Social History Date Type Detail Facility [facility] Start: 1975 Sex assigned at Not on file [facility] Start: 10-06-2019 End: 02-25-2020 Gender identity Not on file [facility] Start: 10-06-2019 Tobacco smoking stat [facility] Never smoked tobacco [facility] Start: 10-06-2019 Tobacco use and exposure Smokeless tobacco non-user [facility] Start: 10-06-2019 End: 04-20-2024 Alcoholic beverage intake Lifetime non-drinker (finding) [facility] Start: 10-06-2019 End: 02-25-2020 History of Social function [facility] How often to you hav e a drink containing alcohol? Never [facility] Average Number of Drinks Not on file [facility] Start: 09-15-2014 Sex Male (finding) [facility] Clinical Notes 11-17-2023 to 04-20-2024 Katlyn Cortez APRN-BRAKE ASSEMBLER - 04/20/2024 7:00 AM Shola Jaramillo MD - 03/30/2024 4:55 PM Kathleen Esquivel RN - 03/18/2024 2:56 PM Tom Henry APRN.BRAKE ASSEMBLER - 02/19/2024 12:09 PM EST Note Date & Type Note Facility 04-20-2024 History of Presen t illness Narrative Images from the original note were not included. [address] [place] [address] SUBJECTIVE: Patient ID: Denis Beth is a [...] he had labs and EKG done at [facility]. Reviewed labs; CBC with diff., PT/PTT, CMP [...] Quiñonez 04/20/24 1556 documented in this encounter [facility] 03-30-2024 Note HNO ID: [id number] Author: SHOLA MIGUEL MD Service: ? Author [...] surgery following either procedure. Shola Miguel MD [facility] 03-30-2024 History of Presen t illness [...] Shola Miguel MD documented in this encounter [facility] 03-18-2024 History of Presen t illness Narrative Images from the original note were not included. Virtual Second Opinions by [facility] Specific Physician Requested by patient: N/A PATIENT INFORMATION: Patient Name: Denis Beth [facility]: [id number] : 1975 Chief Complaint: Second Opinion for [...] surgery, which is scheduled for 04/02 at [facility]. Questions related to second opinion: 1. Is there any other treatment available? 2. Is a disc replacement an option? 3. Would like to know if there are other treatments over a fusion. Records to [facility] [place] [address] [address], [place] [address] MR Office notes 12/2023-present Images are already available with reports in scanned doc PATIENT NAME: Denis Beth INTAKE DATE: March 18, 2024 INTAKE TIME: 2:57 PM CENTRAL SUPPLY WORKER: Kathleen Tran, RN documented in this encounter [facility] 02-19-2024 Note HNO ID: [id number] Author: TOM PALAFOX APRN.BRAKE ASSEMBLER Service: ? Author Type: Nurse Practitioner Type: [...] xr cerv ordered to be completed prior [facility] 02-19-2024 History of Presen t illness [...] Health Provider or Pain Management Provider at [facility]? No If answer is YES please [...] facility where the MRI/CT/myelogram was completed: [facility] Address: [address] [place] [address] MRI/CT/myelogram viewable in Epic: No If not, please provide [phone] to fax in imaging reports for review. [...] where the surgery was completed: Additional Comments [phone] (Home Phone) documented in this encounter [facility] 02-17-2024 Note HNO ID: [id number] Author: ?, ?, ? Service: ? Author Type: ? Type: Progress Notes Filed: 02/19/2024 12:14 Note Text: Patient name: Denis Beth Are you being referred by a [place] for Spine Health Provider or Pain Management Provider at [facility]? No If answer is YES please [...] facility where the MRI/CT/myelogram was completed: [facility] Address: [address] [place] [address] MRI/CT/myelogram viewable in Epic: No If not, please provide [phone] to fax in imaging reports for review. [...] where the surgery was completed: Additional Comments [phone] (Home Phone) [facility] 12-18-2023 Miscellaneous Notes Formattin g of this note might be different from the original. ----- Message from BILLY Arana sent at 12/18/2023 9:09 AM EST ----- Reviewed. Labs are excellent. Read note to pt. Pt verbalizes understanding. documented in this encounter [facility] 12-18-2023 Telephone encount er Note ----- Message from BILLY Arana sent at 12/18/2023 9:09 AM EST ----- Reviewed. Labs are excellent. [facility] 12-18-2023 Telephone encount er Note Read note to pt. Pt verbalizes understanding. [facility] 12-16-2023 History of Presen t illness Narrative Images from the original note were not included. [address] [place] [address] SUBJECTIVE: Patient ID: Denis Beth is [...] Quiñonez 12/16/23 1444 documented in this encounter [facility] 11-17-2023 Miscellaneous Notes Formattin g of this note might be different from the original. Patient used to be yours and wants to come back, will you accept That is fine Scheduled documented in this encounter [facility] 11-17-2023 Telephone encount er Note Patient used to be yours and wants to come back, will you accept [facility] 11-17-2023 Telephone encount er Note That is fine [facility] [place] [facility] 11-17-2023 Telephone encount er Note Scheduled [facility] Evaluation note Diagnosis Neck pain- Primary Cervicalgia [facility] Diagnosis Annual physical exam- Primary [...] inoculation against influenza [facility]* Diagnosis Cervical radiculopathy- Primary Brachial neuritis or radiculitis nos Herniation of cervical intervertebral disc with radiculopathy Displacement of cervical intervertebral disc without myelopathy [facility]* Diagnosis Health education- Primary Counseling NOS documented [facility]* Diagnosis Chronic neck pain- Primary Cervicalgia Preoperative clearance Unspecified pre-operative examination documented in this encounter [facility] [place] SystemInstructionsNot on filedocumented in this encounter [facility] System[facility]ructions* Attachments The following attachments cannot be sent through Care Everywhere. * Yearly Physical for Adults ([place]) [facility] SystemInstructionsNot on file [facility]* Attachments The following attachments cannot be sent through Care Everywhere. * Chronic pain ([place]) [facility] (narrative)* Diagnostic Procedure Only (Routine) - New Request Specialty Diagnoses / Procedures Referred By Harpreet t Referred To Contact XR IMAGING Diagnoses Neck pain Procedures XR CERV OTHER 4V AP/LAT/FLX/EXT RADEX SPINE CERVICAL 4 OR 5 VIEWS Tom Palafox APRN.CNP [address] [id number] Xr Imaging [id number] Referral ID Status Reason Start Date Expiration Date Visits Requested Visits Authorized [id number] New Request Auto-Generat ed Referral 02/19/2024 03/20/2025 1 1 [facility] Summary Purpose Family History No Family History [...] and content) DATE CREATED AUTHOR 04/15/2018 [facility] DATE CREATED AUTHOR AUTHOR'S ORGANIZ ATION 12/18/2023 [facility] DATE CREATED AUTHOR AUTHOR'S ORGANIZ ATION 04/01/2024 [facility] DATE CREATED AUTHOR AUTHOR'S ORGANIZ ATION 04/22/2024 [facility] DATE CREATED AUTHOR AUTHOR'S ORGANIZ ATION 04/26/2024 [facility] Source Comments (unrecognize d section and content) In the event this informatio n is protected by the Federal Confidentiality of Alcohol and Drug Abuse Patient Records regulations: The Federal rules restrict any use of the information to criminally investigate or prosecute any alcohol or drug abuse patient.[facility] the event this information is protected by the Federal Confidentiality of Alcohol and Drug Abuse Patient Records regulations: The Federal rules restrict any use of the information to criminally investigate or prosecute any alcohol or drug abuse patient.[facility] the event this information is protected by the Federal Confidentiality of Alcohol and Drug Abuse Patient Records regulations: The Federal rules restrict any use of the information to criminally investigate or prosecute any alcohol or drug abuse patient.[facility] Care Teams (unrecognized sec tion and content) Prekindergarten Teacher Relationship Specialty Start Date End Date [address] [place] [address] PCP - General Family Medicine 03/11/13 Prekindergarten Teacher Relationship Specialty Start Date End Date No Pcp, [place] [address] PCP - General Family Medicine 08/23/19 Prekindergarten Teacher Relationship Specialty Start Date End Date Katlyn Cortez APRN-[facility] [address] [place] [address] PCP - General Family Medicine 12/16/23 Prekindergarten Teacher Relationship Specialty Start Date End Date Katlyn Cortez APRN-[facility] [address] [place] [address] PCP - General Family Medicine 12/16/23 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 [facility] [employer] [facility]. provides no warranty or guarantee of the accuracy or completeness of information in this document.
--- NOTE | 2024-04-30 11:55 | SWNOTE1 ---
SW consulted for home health services.
--- NOTE | 2024-04-30 13:14 | SWNOTE1 ---
SW met with pt to discuss home health services. SW explained to pt that he has a HARVEY drain and home health services would monitor and assist with drain if needed. Pt is in agreement. SW advised if the drain is removed prior to discharged he will not need the home health. Pt is alright with any services as long as they are in network with insurance. Referral sent to [facility] . Referral included face sheet, H&P, and surgical note.
[2024-04-30] MEDS: BISACODYL 5 MG TABLET PO (14:02)
[2024-04-30] MEDS: POLYETHYLENE GLYCOL 3350 17 GM POWDER PACKET PO (14:02)
--- NOTE | 2024-04-30 15:13 | SWNOTE1 ---
SW received call from [facility] and they would have to go through a 3rd democrat to get approval to see pt and this could take up to 5 days. SW to call back if needed. Referral sent to [address] Referral included face sheet, consult note, surgery note, and H&P.
--- NOTE | 2024-04-30 16:04 | SWNOTE1 ---
[facility] received a call from [address] and they are not in network with insurance. [facility] called [facility] (no staffing), Lina Penn (out of network), Troy Sykes (no staffing in that area), and [facility]elli Chung (not in network). At this time SW not able to set up home health services.
--- NOTE | 2024-04-30 16:17 | SWNOTE1 ---
SW did notify nurse about the HARVEY drain and no company able to accept. [facility] expressed they will review with pt. SW let pt know as well.
[2024-04-30] MEDS: CEFAZOLIN SODIUM/DEXTROSE,ISO 2 GM/50 ML PIGGYBACK IV ×2 (16:30→23:54)
[2024-04-30] MEDS: OXYCODONE HCL 5 MG TABLET PO (20:57)
[2024-04-30] MEDS: CYCLOBENZAPRINE HCL 10 MG TABLET PO (20:57)
[2024-05-01] VITALS: BP 169/75; PULSE 60; TEMP 36.7; O2SAT 97
[2024-05-01 03:38] VITALS: BP 144/83; PULSE 56; TEMP 36.7; O2SAT 97
[2024-05-01] MEDS: OXYCODONE HCL 5 MG TABLET PO (03:41)
[2024-05-01 08:00] VITALS: BP 124/76; PULSE 59; TEMP 36.4; O2SAT 95
[2024-05-01] MEDS: SENNOSIDES/DOCUSATE SODIUM 1 TAB TABLET PO (08:34)
[2024-05-01] MEDS: BISACODYL 5 MG TABLET PO (08:34)
[2024-05-01] MEDS: POLYETHYLENE GLYCOL 3350 17 GM POWDER PACKET PO (08:34)
--- NOTE | 2024-05-01 08:57 | PM.ORPN ---
Progress Note: A&P Assessment and Plan (1) Cervical stenosis of spine: Assessment and Plan: POD #1 C4-5 and C6-7 ACDF with stand-alone cages -HARVEY drain output 20 mL in 12 hours, will maintain and discharge home with drain, maintain cervical collar, will remove in office on Wednesday 05/03 at 11 AM. We discussed recording outputs, he will need measuring cup. -Soft diet as needed, patient having no issues but discussed avoiding meats/breads or any items that give him dysphagia -Maintain dressings at discharge until drain removal. -Patient will follow-up in the office with me Friday for drain removal. Plan discussed with my supervising physician, Dr. Norris. Subjective Subjective Principal diagnosis: Post Operative ACDF Interval history: Patient is POD #1 from a C4-5 and C6-7 ACDF with stand-alone cages. Patient is doing very well and pain is controlled. Prior to to surgery he had right arm pain/tingling that went to his 1st through 3rd digits. His arm radicular symptoms have resolved postoperatively except for some tingling still in the 1st through 3rd digits. Patient denies any dysphagia, does have a sore throat. Exam Narrative Exam Narrative: On exam patient is standing in the room on my arrival, gait is steady, c-collar in place, alert and oriented x 3, age-appropriate. Anterior neck dressings are clean/dry/intact. HARVEY drain in place. 5/5 strength in bilateral upper extremities. Sensation intact with light touch throughout the bilateral upper extremities. Constitutional Vital Signs, click to edit/add: Last Vital Signs Temp 97.6 F 05/01/24 08:00 Pulse 59 L 05/01/24 08:00 Resp 16 05/01/24 08:00 BP 124/76 05/01/24 08:00 Pulse Ox 95 05/01/24 08:00 O2 Del Method Room Air 05/01/24 08:00
== END 2024-05-01 11:04 | disposition home or self-care (01) ==
LOC: SURGOUT 10:48 → MS 10:48
PROVIDERS: Admitting Provider Orthopaedic Surgery Orthopaedic Surgery of the Spine; PCP Nurse Practitioner; Visit Provider Orthopaedic Surgery Orthopaedic Surgery of the Spine
PROC: (CPT 670; principal; 2024-04-30 07:30)
DX: M48.02 Spinal stenosis, cervical region (principal); M50.121 Cervical disc disorder at C4-C5 level with radiculopathy; M50.123 Cervical disc disorder at C6-C7 level with radiculopathy
CPT/HCPCS: 22551; 22552; 22853 ×2; 36415; 72040; 95861; 95938; 96365; C1713; G0378; J0131; J0690; J1100; J1171; J2250; J2405; J2704; J3010